=== PATIENT | male | born 1940 | race Caucasian/White ===

== ENCOUNTER 2021-08-12 22:15 | Emergency (ER) | payer MEDICARE, OTHER ==
[2021-08-12 22:26] VITALS: BP 128/61
[2021-08-13] MEDS ORDERED: cephALEXin 250 MG CAPSULE PO STA (01:23)
--- NOTE | 2021-08-13 01:26 | ED Physician Documentation ---
PD HPI UPPER EXT INJURY - Stated complaint Stated Complaint: HAND LAC - Chief complaint Chief Complaint: Laceration - History obtained from History obtained from: Patient - History of Present Illness Location: Right, Hand Type of injury: Laceration - Additonal information Additional information: Patient is a 80-year-old male presenting for evaluation of laceration to the right hand/wrist Which occurred a few hours ago. Patient was removing his hand from a crab pot and sustained a laceration from the metal. He denies concerns for foreign body. His tetanus is up-to-date. He does not take a blood thinner. Patient denies history of diabetes.Bleeding is controlled with pressure. Review of Systems Constitutional: denies: Fever Throat: denies: Sore throat Cardiac: denies: Chest pain / pressure Respiratory: denies: Dyspnea GI: denies: Abdominal Pain Skin: reports: Laceration (s) Neurologic: denies: Head injury PD PAST MEDICAL HISTORY - Past Medical History Musculoskeletal: Rheumatoid arthritis - Present Medications Home Medications: Ambulatory Orders Medication Instructions Recorded Confirmed cephALEXin [Keflex] 500 mg PO Q6H #20 cap 08/13/21 - Allergies Allergies/Adverse Reactions: Allergies Allergy/AdvReac Type Severity Reaction Status Date / Time No Known Drug Allergies Allergy Verified 08/12/21 22:28 PD ED PE NORMAL - General General: Alert and oriented X 3, No acute distress, Well developed/nourished - HEENT HEENT: Atraumatic - Neck Neck: Supple, no meningeal sign - Cardiac Cardiac: Strong equal pulses - Respiratory Respiratory: No respiratory distress - Extremities Extremities: No tenderness to palpate, Normal ROM s pain PD ED PE EXPANDED - Extremities Extremities: Motor intact, Sensory intact, Vascular intact, Other (Strong radial pulse, no bony tenderness to hand or wrist, full range of motion ) JACI UE/Hands Visual: 1 - laceration 2 - abrasion Results - Vitals Vitals: Vital Signs - 24 hr 08/12/21 22:20 Temperature 36.4 C L Heart Rate 85 Respiratory 18 Rate Blood Pressure 128/61 O2 Saturation 97 Oxygen O2 Source Room air Procedures - Laceration (location) Right hand Wound type: Irregular (Linear but jagged), Clean Neurovascular status: Sensory intact, Motor intact, Vascular intact Tendon involvement: Tendon intact Anesthesia: Lidocaine 1% with epi Wound preparation: Hibiclens, Irrigated copiously NS Skin layer closure: Steri strips, Interrupted, Sutures - enter # (8) Other: Patient tolerated well, No complications, Neurovascular intact, Dressing applied, Tetanus UTD PD MEDICAL DECISION MAKING - ED course ED course: Patient with laceration to his right hand/Wrist from a crab pot. Neurovascularly intact. No signs of tendon or vascular injury.Wound was copiously irrigated. Patient reported that the metal did poke pretty far into his hand. Offered x-ray but patient declined. 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 He does not feel any bony tenderness. Given the location of the laceration and That the item that cut him was not clean, discussed prophylactic antibiotic To prevent infectionwhich the patient is agreeable to.Patient is aware of wound care instructions, Understands concerning symptoms to return for. 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 Departure - Departure Disposition: 01 Home, Self Care Clinical Impression: Laceration of right hand Qualifiers: Encounter type: initial encounter Foreign body presence: without foreign body Qualified Code(s): S61.411A - Laceration without foreign body of right hand, initial encounter Condition: Stable Instructions: ED Laceration Hand Prescriptions: cephALEXin [Keflex] 500 mg PO Q6H #20 cap Comments: You were evaluated for a laceration to your right hand. 8 stitches were placed as well as Steri-Strips. The stitches should be removed in 5 to 7 days. You can return to the emergency department, your primary care doctor's office or a walk-in clinic to have the stitches removed. Due to the nature of the injury I have started you on an antibiotic to prevent any infection. Please continue taking this for the next 5 days. I have sent the prescription to [facility] in [place]. Please keep the wound clean and dry. If you notice any signs of infection such as redness, increased pain, swelling or abnormal drainage please return to the emergency department. Discharge Date/Time: 08/13/21 01:32
== END 2021-08-13 01:32 | disposition home or self-care (01) ==
LOC: ED 22:15
DX: S61.511A Laceration without foreign body of right wrist, initial encounter (principal); W26.8XXA Contact with other sharp object(s), not elsewhere classified, initial encounter; Y93.89 Activity, other specified
CPT/HCPCS: 12002; 99282; A9270

== ENCOUNTER 2024-10-06 03:31 | Inpatient (IN) ==
--- NOTE | 2024-10-06 03:58 | ED Physician Documentation ---
PD HPI LOWER EXT INJURY Stated complaint Stated Complaint: HIP INJ Chief complaint Chief Complaint: Ext Problem Additional information Additional information: BIBA. HPI from patient and family (at bedside). Patient has been having nausea, vomiting, diarrhea x 2 days and has been mostly staying in bed past 1-2 days. Mp got out of bed and, on way to bathroom, lost his balance and fell onto right side, causing sudden onset right hip pain when he landed on the floor. Did not hit head, denies LOC. Denies [place], neck pain, chest pain. He does not take any blood-thinning medications. Denies any other injury/pain except right hip pain. The right hip pain is exacerbated with any movement, palpation. Given 150 micrograms fentanyl en route by EMS. Meds/Allgy Home Medications Ambulatory Orders Medication Instructions Recorded Confirmed cephalexin 500 mg capsule 500 mg PO Q6H #20 caps 08/1310/06/24 Held on 10/06/24. Instructions: Per Patient colchicine 0.6 mg tablet 0.6 mg PO BID #30 tabs 07/0610/06/24 Held on 10/06/24. Instructions: Per Patient dexamethasone 2 mg tablet 2 mg PO DAILY #5 tabs 10/06/24 Held on 10/06/24. Instructions: Per Patient atorvastatin 80 mg tablet 80 mg PO QPM 10/06/24 hydrochlorothiazide 25 mg tablet 25 mg PO DAILY irbesartan 150 mg tablet 150 mg PO DAILY 10/06/24 metformin 1,000 mg tablet 1,000 mg PO BID 10/06/24 Allergies Allergies Allergy/AdvReac Type Severity Reaction Status Date / Time No Known Drug Allergies Allergy Verified 10/06/24 03:46 PFSH Active Problems All Active Problems (Updated 10/06/24 @ 05:43 by Keyur Gross MD) Closed right hip fracture (Acute) Medical History Medical History (Updated 10/06/24 @ 05:43 by Keyur Gross MD) High cholesterol Arthritis Hypertension Social History Social History Smoking Status: Never smoker Living arrangement: At home Marital Status: Living Condition: With spouse/s.o. Do you feel safe in your home environment?: Yes History of physical, verbal, emotional, or financial abuse?: No POLST Patient has POLST: No Exam Exam Vital Signs: Vital Signs x48h Temp Pulse Resp BP Pulse Ox 10/06/24 03:42 37.2 C 67 20 108/54 L 95 Constitutional normal general appearance, distress noted (appears to be in moderate painful discomfort) (moderate) and alert HENMT head/scalp atraumatic Eyes PERRL and EOMs intact bilaterally Neck/C-Spine cervical spine nontender and cervical full ROM noted Respiratory breath sounds equal bilaterally and clear to auscultation bilaterally Cardiovascular normal heart rate noted, regular rhythm noted and no murmur Extremities abnormal to palpation, tenderness noted and abnormal ROM noted right hip/thigh: no ecchymosis, lacerations, abrasions. palpable right dorsalis pedis pulse and @ 2 second capillary refill. Decreased LTS right foot but equal to (decreased) LTS left foot. right foot is externally rotated beyond 90 degrees (approximately 100 degrees) TTP right hip and proximal thigh. Neurology GCS 15 Psychiatry oriented x3 Results Vitals Vitals: Vital Signs - 24 hr 10/06/24 03:42 10/06/24 04:05 Temperature 37.2 C Temperature Source Temporal Artery Scan Pulse Rate 67 Respiratory Rate 20 Blood Pressure 108/54 L O2 Saturation 95 O2 Source Room air Pain Intensity 4 4 Oxygen O2 Source Room air Labs Labs: Laboratory Tests 10/06/24 03:40 WBC 9.6 RBC 3.47 L Hgb 12.2 L Hct 36.3 L MCV 104.6 H MCH 35.2 H MCHC 33.6 RDW 12.3 Plt Count 148 MPV 10.6 Neut # (Auto) 8.1 H Lymph # (Auto) 0.7 L [place] # (Auto) 0.8 Eos # (Auto) 0.0 Baso # (Auto) 0.0 Absolute Nucleated RBC 0.00 Nucleated RBC % 0.0 Sodium 130 L Potassium 3.8 Chloride 94 L Carbon Dioxide 26 Anion Gap 10.0 BUN 17 Creatinine 1.3 Estimated GFR (MDRD) 53 L Glucose 152 H Calcium 8.7 Rads (name of study) right hip xrays: Relevant Findings:: Prelim report reviewed and See rad report PD Medical Decision Making ED course Complexity details: reviewed results, re-evaluated patient, considered differential and d/w patient ED course: Plain-film x-ray is interpreted by radiologist as "acute, displaced intertrochanteric and subtrochanteric fracture of the right proximal femur." I discussed this case with Dr. Shaw and reviewed xray results with him. He recommends admit to [facility], hospitalist service. He also recommends either Hill traction or else, if not available, that I apply gentle in-line traction with internal rotation. Hill traction is not available and thus I applied gentle in- line traction to RLE with gradual internal rotation and was able to get the foot in neutral (zero degrees) position. I then discussed this case with [facility] telehealth who accepts patient to [facility] hospitalist service Discharge Plan Discharge Patient Disposition: 66 [facility] DC/Xfer Condition: Good Clinical Impression: Closed right hip fracture Qualifiers: Encounter type: initial encounter Qualified Code(s): S72.001A - Fracture of unspecified part of neck of right femur, initial encounter for closed fracture Interventions: ED Admission Assessment Last Done: 10/06/24 06:02
[2024-10-06] MEDS: HYDROmorphone 1 MG/ML CARPUJECT IVP STA (04:05)
[2024-10-06 04:36] LABS: HCT - HEMATOCRIT 36.3 % (42.0-52.0); HGB - HEMOGLOBIN 12.2 g/dL (14.0-18.0); MEAN PLATELET VOLUME 10.6 fL (7.4-11.4); NRBC ABSOLUTE COUNT (AUTO) 0.00 x10^3/uL; NUCLEATED RED BLOOD CELLS AUTO 0.0 /100WBC; PLT - PLATELET COUNT 148 10^3/uL (130-450); RED CELL DISTRIBUTION WIDTH 12.3 % (12.0-15.0)
[2024-10-06] MEDS: SODIUM CHLORIDE 0.9% 1,000 ML IV STA (04:45)
[2024-10-06 04:51] LABS: BUN - BLOOD UREA NITROGEN 17.0 mg/dL (6-20); CARBON DIOXIDE - CO2 26.0 mmol/L (21-32); CREATININE 1.3 mg/dL (0.6-1.3); GFR - MDRD 53.0 (>89)
--- NOTE | 2024-10-06 05:21 | HISTORY & PHYSICAL EXAMINATION ---
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 At baseline patient is able to walk within 100-200 meters without getting dyspnea or chest pain or leg pain. Since fall patient sustained right hip pain, worse with moving and weight bearing somewhat better with pain medication in ER, during work up in ER, patient is found to have close right hip fracture and ER Dr Gross d/w sidney MARVIN for operative repair consult, hospitalist team is asked to admit patient Meds/Allgy Home Medications Ambulatory Orders Medication Instructions Recorded Confirmed cephalexin 500 mg capsule 500 mg PO Q6H #20 caps 08/1310/06/24 Held on 10/06/24. Instructions: Per Patient colchicine 0.6 mg tablet 0.6 mg PO BID #30 tabs 07/0610/06/24 Held on 10/06/24. Instructions: Per Patient dexamethasone 2 mg tablet 2 mg PO DAILY #5 tabs 10/06/24 Held on 10/06/24. Instructions: Per Patient atorvastatin 80 mg tablet mg DAILY 10/06/24 hydrochlorothiazide 25 mg tablet mg DAILY 10/06/24 irbesartan 150 mg tablet mg DAILY 10/06/24 metformin 1,000 mg tablet mg BID 10/06/24 Allergies Allergies Allergy/AdvReac Type Severity Reaction Status Date / Time No Known Drug Allergies Allergy Verified 10/06/24 03:46 PFSH Active Problems All Active Problems (Updated 10/06/24 @ 05:43 by Keyur Gross MD) Closed right hip fracture (Acute) Medical History Medical History (Updated 10/06/24 @ 05:43 by Keyur Gross MD) High cholesterol Arthritis Hypertension Social History Social History Smoking Status: Never smoker Living arrangement: At home Marital Status: Living Condition: With spouse/s.o. Do you feel safe in your home environment?: Yes History of physical, verbal, emotional, or financial abuse?: No POLST Patient has POLST: No Review of Systems As a part of complete assessment, following review of systems are obtained including neurology, cardiology, pulmonary, gastrointestinal, constitutional, genitourinary, Musculoskeletal, Endocrine and all are negative except HPI Exam Exam Vital Signs: Vital Signs x48h Temp Pulse Resp BP Pulse Ox 10/06/24 03:42 37.2 C 67 20 108/54 L 95 Conducted by ER MD In person exam, and by RN at bedside, this visit was conducted via telemedicine visit Constitutional normal general appearance HENMT normocephalic Eyes no scleral icterus Chest inspection of chest normal Cardiovascular no edema Neurology no movement abnormality noted, no focal motor deficit noted and no sensory deficits noted Conclusion/Plan Problem List (1) Closed right hip fracture: Qualifiers: Encounter type: initial encounter Qualified Code(s): S72.001A - Fracture of unspecified part of neck of right femur, initial encounter for closed fracture (2) Hypertension: (3) High cholesterol: Plan -Admit to hospital - From functional stand point, no symptoms limiting function, no prior CAD - Ok to proceed with surgery if ortho is proceeding with surgery - Hypovolvemic hyponatreimia, reduce HCTZ dose - Continue gentle IVF - Hold Irbesartan preop - Continue statin - Ortho consult to follow - Full code status - Will need post op PT Lab Results 10/06/24 03:40 10/06/24 03:40
[2024-10-06] MEDS ORDERED: ONDANSETRON 4 MG/2 ML VIAL IVP PRN (06:23)
[2024-10-06] MEDS ORDERED: SODIUM CHLORIDE FLUSH 0.9% 10 ML SYRINGE IVP PRN (06:23)
[2024-10-06] MEDS: INSULIN REGULAR, HUMAN 300 UNIT/3 ML PEN SUBQ SCH (06:40)
[2024-10-06] MEDS: SODIUM CHLORIDE 0.9% 1,000 ML IV SCH (06:41)
[2024-10-06] MEDS: ACETAMINOPHEN 325 MG TABLET PO PRN (08:43)
--- NOTE | 2024-10-06 08:48 | XRAY Report ---
PROCEDURE: XR Hip w/Pelvis 2-3V RT INDICATIONS: fall, right hip pain TECHNIQUE: 3 views of the hip were acquired. COMPARISON: None. FINDINGS: Bones: Angulated and mildly displaced proximal femoral fracture extending to the intertrochanteric bone. There is no dislocation at the hip joint. Displacement from the distal aspect of the spinal trochanteric component of the fracture measures approximately 5 cm. Soft tissues: No suspicious soft tissue calcifications or masses. IMPRESSION: Comminuted displaced proximal femoral fracture involving the intertrochanteric region. The above findings are concordant with preliminary report. Reviewed by: Denita Martinez MD on 10/06/2024 8:46 AM PDT Approved by: Denita Martinez MD on 10/06/2024 8:46 AM PDT Station ID: [id number]
[2024-10-06] MEDS: HYDROmorphone 0.5 MG/0.5 ML SYRINGE IVP PRN (08:53)
--- NOTE | 2024-10-06 09:28 | PROVIDER PROGRESS NOTE ---
Subjective Prog Note Date Prog Note Date: 10/06/24 Prog Note Time: 09:26 Subjective Subjective: is at the bedside. 2 children at the bedside. They are very concerned. He is usually very shea and hearty lin. No evidence of dementia. He got sick on Sunday, October 03. Started having some abdominal discomfort and nausea. He tried to vomit and could not. Feels like something was blocking his esophagus and he is asking me for an esophagram. Diarrhea was a couple of times. Has not had anything to eat or drink since Sunday. No blood in the stool. He has not had any emesis. He was seen in the emergency room and at that time temperature was 37 2. Blood pressure 108/54. White cell count is 9.6. No chest x-ray. No urinalysis. Focus was on the hip fracture that he suffered because he fell trying to get out of bed. Currently he is spiked a temp to 38.8. Blood pressure stable at 114/47 with this. He started to get a little confused and diaphoretic. Family very alarmed. Understandably so. But he is still able to speak to me and tell me that he wanted the esophagram for the dry heaving where he felt like his drink could not get down. But no emesis. He has not had a history of heart disease. No AK. No arrhythmias. He does not take blood thinners. His discomfort does not radiate into his chest. He is not short of breath. Current Medications Current Medications Current Medications: Current Medications Generic Name Dose Route Start Last Admin Trade Name Freq PRN Reason Stop Dose Admin Acetaminophen 650 mg 10/06/24 06:23 10/06/24 08:43 Acetaminophen 325 Mg Tablet PO 650 mg Q4HR PRN Administration Pain 1 to 4, or Fever Atorvastatin Calcium 80 mg 10/06/24 09:00 Atorvastatin 40 Mg Tablet PO DAILY DUNIA Heparin Sodium (Porcine) 5,000 unit 10/06/24 21:00 Heparin 5,000 Unit/Ml Vial SUBQ BID DUNIA Hydrochlorothiazide 12.5 mg 10/06/24 09:00 Hydrochlorothiazide 25 Mg Tablet PO DAILY DUNIA Hydromorphone HCl 0.5 mg 10/06/24 06:23 10/06/24 08:53 Hydromorphone 0.5 Mg/0.5 Ml Syringe IVP 0.5 mg Q2H PRN Administration Pain 8 to 10 Sodium Chloride 1,000 mls @ 100 mls/hr 10/06/24 06:23 10/06/24 06:42 Normal Saline 0.9% IV 100 mls/hr .Q10H [facility] Infusion Ciprofloxacin 400 mg in 200 mls @ 200 mls/hr 10/06/24 10:00 Cipro 400 Mg/200 Ml IV Q12H [facility] Metronidazole 500 mg in 100 mls @ 100 mls/hr 10/06/24 10:00 Flagyl 500 Mg/100 Ml IV Q8H [facility] Insulin Human Regular 1 - 5 unit 10/06/24 06:23 10/06/24 06:40 Insulin Regular, Human 300 Unit/3 Ml Pen SUBQ Not Given Q6HR [facility] Protocol Ondansetron HCl 4 mg 10/06/24 06:23 Ondansetron 4 Mg/2 Ml Vial IVP Q6HR PRN Nausea / Vomiting Oxycodone HCl 5 mg 10/06/24 06:23 Oxycodone 5 Mg Tablet PO Q4HR PRN Pain 5 to 7 Sodium Chloride 10 ml 10/06/24 06:23 Sodium Chloride Flush 0.9% 10 Ml Syringe IVP PRN PRN NEEDED PER PROVIDER ORDERS Sodium Chloride 10 ml 10/06/24 09:00 Sodium Chloride Flush 0.9% 10 Ml Syringe IVP 0100,0900,1700 [facility] Objective Vital Signs/Intake & Output Reviewed Vital Signs: Yes Vital Signs: Vital Signs x48h Temp Pulse Pulse Resp BP BP Pulse Ox 10/06/24 08:22 38.8 C H 74 21 114/47 L 94 10/06/24 06:02 76 18 126/51 L 96 10/06/24 03:42 37.2 C 67 20 108/54 L 95 O2 Flow Rate 10/06/24 08:22 10/06/24 06:02 3 10/06/24 03:42 Intake & Output: Intake & Output 10/03/24 10/04/24 10/05/24 10/06/24 23:59 23:59 23:59 23:59 Intake Total 295 / 295 Balance 295 / 295 Weight (kg) 96 kg Objective General Appearance: positive Moderate distress (Grimacing. Starts to pant with pain and then as the pain lessens he is breathing goes to normal. The pain is in his hip.) and Other (Able to answer some questions. But very difficult for him to focus and converse.Diaphoretic.) Eyes Bilateral: positive PERRL and EOMI ENT: positive Dry mucous membranes Neck: positive No JVD; negative Stiff neck or Carotid bruit Respiratory: positive Chest non-tender, No respiratory distress (But will get temporary tachypneic with pain from the hip and he catches his breath) and Breath sounds nml Cardiovascular: positive Regular rate & rhythm and No murmur Abdomen: positive Non-tender, No organomegaly and Nml bowel sounds Skin: positive Warm and Diaphoresis Extremities: positive Nml appearance and Other (Tenderness over the right hip. I cannot move that leg. But other leg is without cyanosis or edema) Neurologic/Psychiatric: positive Oriented x3, CN's nml (2-12), Motor nml and Other (Working hard at staying focused and able to converse lucidly. Is following commands.) Lab Results 10/06/24 03:40 10/06/24 03:40 Other Labs: Lab Results x24hrs 10/06/24 10/06/24 Range/Units 06:31 03:40 WBC 9.6 (4.8-10.8) x10^3/uL RBC 3.47 L (4.70-6.10) 10^6/uL Hgb 12.2 L (14.0-18.0) g/dL Hct 36.3 L (42.0-52.0) % MCV 104.6 H (80.0-94.0) fL MCH 35.2 H (27.0-31.0) pg MCHC 33.6 (32.0-36.0) g/dL RDW 12.3 (12.0-15.0) % Plt Count 148 (130-450) 10^3/uL MPV 10.6 (7.4-11.4) fL Neut # (Auto) 8.1 H (1.5-6.6) 10^3/uL Lymph # (Auto) 0.7 L (1.5-3.5) 10^3/uL [place] # (Auto) 0.8 (0.0-1.0) 10^3/uL Eos # (Auto) 0.0 (0.0-0.7) 10^3/uL Baso # (Auto) 0.0 (0.0-0.1) 10^3/uL Absolute Nucleated RBC 0.00 x10^3/uL Nucleated RBC % 0.0 /100WBC Sodium 130 L (135-145) mmol/L Potassium 3.8 (3.5-4.5) mmol/L Chloride 94 L (101-111) mmol/L Carbon Dioxide 26 (21-32) mmol/L Anion Gap 10.0 (6-13) BUN 17 (6-20) mg/dL Creatinine 1.3 (0.6-1.3) mg/dL Estimated GFR (MDRD) 53 L (>89) Glucose 152 H (74-104) mg/dL POC Whole Bld Glucose 137 (70-100) mg/dL Calcium 8.7 (8.5-10.3) mg/dL Assessment/Plan Problem List (1) Fever: Impression: On review of systems the only hint I have 2 possible organ involvement is nausea, abdominal discomfort. Diarrhea. Abdominal exam is benign with normal bowel sounds. But he is having a fever. I do also think about fat pulmonary embolus. That is usually associated with hypoxia and fever and elevated white cell count. He has the fever but not hypoxia or white cell count. I am going to be ordering a stat chest x-ray, blood cultures, urinalysis, EKG and troponin. As abdomen is possible source or colitis is some type as possible source I am going to start Cipro and Flagyl. If he ends up having a UTI Cipro will cover it. The only thing I am not covering is going to be community- acquired pneumonia but that usually does not start as a GI positive review of systems.He is on normal saline 100 cc an hour. I will give him a 500 cc bolus since he has not had anything to eat or drink since Sunday and today is Sunday. He has antiemetics written for. And Dilaudid written for. The next step would be to treat the pain from the hip fracture. I told the family I we will contact orthopedics and try and find out what time his surgery would be. DVT prophylaxis is with heparin. I will give the first injection today. Qualifiers: Fever type: unspecified Qualified Code(s): R50.9 - Fever, unspecified (2) Closed right hip fracture: Impression: Fall due to illness and sudden deconditioning. Possibly to go to the operating room today. Qualifiers: Encounter type: initial encounter Qualified Code(s): S72.001A - Fracture of unspecified part of neck of right femur, initial encounter for closed fracture (3) Hypertension: Impression: At home his medication is irbesartan and hydrochlorothiazide. Right now his blood pressure is normal without those medications. I am going to hold off on giving those. When his blood pressure rebounds I will resume them. Qualifiers: Hypertension type: primary hypertension Qualified Code(s): I10 - Essential (primary) hypertension (4) High cholesterol: Impression: Telehealth resumed his statin.
[2024-10-06] MEDS: SODIUM CHLORIDE 0.9% 500 ML IV ONE (09:44)
--- NOTE | 2024-10-06 09:51 | XRAY Report ---
PROCEDURE: XR Chest 1V INDICATIONS: fever preop TECHNIQUE: One view of the chest was acquired. COMPARISON: Chest x-ray, CT chest 07/06/2024 FINDINGS: Surgical changes and devices: None. Lungs and pleura: Blunting of the left costophrenic angle with slight hazy opacity in the left base similar versus minimally more prominent when compared to prior exam. Mediastinum: Mediastinal contours appear normal. Heart size is enlarged. Bones and chest wall: No suspicious bony lesions. Overlying soft tissues appear unremarkable. IMPRESSION: Hazy left basilar opacity likely reflective of minimal/mild effusion. Underlying areas of pneumonia/atelectasis can't be excluded. Reviewed by: Denita Martinez MD on 10/06/2024 9:50 AM PDT Approved by: Denita Martinez MD on 10/06/2024 9:50 AM PDT Station ID: [id number]
--- NOTE | 2024-10-06 10:14 | PHARMACY PROGRESS NOTE ---
Best Possible Medication History Admit Date and Time: 10/06/24 [id number] Home Medications Medication Instructions Recorded Confirmed Type atorvastatin 80 mg tablet 80 mg PO QPM 10/06/24 History hydrochlorothiazide 25 mg tablet 25 mg PO DAILY 10/06/24 History irbesartan 150 mg tablet 150 mg PO DAILY 10/06/2403/01 History metformin 1,000 mg tablet 1,000 mg PO BID 10/06/2403/01 History Processed by: Pharmacy Medications reviewed in ED?: No Medication History completed: Yes Patient Interview: Pt interview ONLY source Secondary Source(s): Written medication list, Other family member, Pharmacy records and Insurance records [facility] Statement: As the person ultimately responsible for medication therapy, providers are able to order a medication from an existing home medication list in [facility] via the "Reconcile Routine" prior to Confirmation of that medication by technical support assistant. Such practice is discouraged except when the physician, in their clinical judgment, deems that a medical need exists for a medication without regard to previous use.
[2024-10-06] MEDS: ATORVASTATIN 40 MG TABLET PO SCH (10:19)
[2024-10-06] MEDS: SODIUM CHLORIDE FLUSH 0.9% 10 ML SYRINGE IVP SCH (10:19)
[2024-10-06] MEDS: HEPARIN 5,000 UNIT/ML VIAL SUBQ SCH (11:20)
[2024-10-06] MEDS: CIPROFLOXACIN 400 MG/200 ML 400 MG/200 ML BAG IV SCH (11:21)
[2024-10-06 12:04] LABS: ESTIMATED AVERAGE GLUCOSE 131 mg/dL (70-100); HEMOGLOBIN A1c% 6.2 % (4.27-6.07)
[2024-10-06] MEDS: oxyCODONE 5 MG TABLET PO PRN (13:32)
[2024-10-06 15:05] LABS: GLUCOSE, URINE (UA) NEGATIVE (NEGATIVE); KETONES,URINE (UA) 40 mg/dL (NEGATIVE); OCCULT BLOOD,URINE SMALL (NEGATIVE); SQUAMOUS EPITHELIAL CELL,UR FEW Squamous (<= Few)
--- NOTE | 2024-10-06 16:22 | CONSULTATION NOTE ---
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 Patient experienced diarrhea, leading to dehydration, which may have contributed to his fall. Denies antecedent or post fall syncopal symptoms. No LOC. Patient sustained a right femur fracture. Patient lives with his Exam: Pt still febrile. Patient appears mildly unwell and is visibly shaking or shivering, which family reports is not normal for him After receiving dilaudid, his shaking stopped and he became calm, suggesting he is in significant pain without narcotics. Patient has had a Diana catheter inserted Thigh examined with mild swelling. Right lower extremity is grossly aligned. There are no specific abnormalities noted other than the fracture. Patient able to move toes. Pain with logroll. Results: Femur xray shows a right intertrochanteric-subtrochanteric fracture. Assessment and Plan: Femur Fracture Assessment: Patient has sustained a femur fracture due to a fall. Patient is experiencing pain and intermittent shivering, which may be related to pain or fever. Plan: 1. Surgery scheduled for 8:30am tomorrow to repair the femur fracture 2. Surgical plan includes insertion of a fran, with possible additional fixation methods such as cerclage, small plate, or screws 3. If surgery is delayed due to patient instability, Dr. Estevez is expected to take over the case 4. DVT prophylaxis with sequential compression boots and pharmacoprophylaxis with lovenox then aspirin. 5. Continue monitoring for fever and overall stability pre-operatively Fever: Discussed with Dr. Baron. Will add rocephin and r/o fat embolus/pneumonia. Gastrointestinal Issues Assessment: Patient has experienced diarrhea leading to dehydration. This is being treated with cipro and metronidazole antibiotics to cover various GI pathogens, including C. diff. Plan: 1. Continue antibiotic treatment with Flagyl (Metronidazole) and Ciprofloxacin as prescribed by Dr. Baron 2. Monitor hydration status and continue IV fluids as needed 3. Observe for improvement in diarrhea symptoms Pain Management Assessment: Patient is experiencing pain related to the femur fracture. Plan: 1. Continue pain management as needed 2. Monitor pain levels and adjust medication as required General Care 1. Continue monitoring vital signs, particularly for development of fever 2. Maintain Diana catheter as needed 3. Ensure patient is kept warm to manage shivering 4. Reassess patient's condition regularly to ensure stability for upcoming surgery PFSH Active Problems All Active Problems (Updated 10/06/24 @ 11:01 by Lynn Baron MD) Fever (Acute) Closed right hip fracture (Acute) Medical History Medical History (Updated 10/06/24 @ 11:01 by Lynn Baron MD) High cholesterol Arthritis Hypertension Social History Social History Smoking Status: Never smoker Second hand tobacco smoke exposure: Yes Do you dip or chew tobacco?: No Do you vape?: No Living arrangement: At home Marital Status: Living Condition: With spouse/s.o. Level: Dependent Home Mobility Equipment: Cane Do you feel safe in your home environment?: No History of physical, verbal, emotional, or financial abuse?: No Substance Use: denies use POLST Patient has POLST: No Meds/Allgy Home Medications Ambulatory Orders Medication Instructions Recorded Confirmed atorvastatin 80 mg tablet 80 mg PO QPM 10/06/24 hydrochlorothiazide 25 mg tablet 25 mg PO DAILY 10/06/24 irbesartan 150 mg tablet 150 mg PO DAILY 10/06/2403/01 metformin 1,000 mg tablet 1,000 mg PO BID 10/06/2403/01 Allergies Allergies Allergy/AdvReac Type Severity Reaction Status Date / Time No Known Drug Allergies Allergy Verified 10/06/24 03:46 Results Lab Results 10/06/24 03:40 10/06/24 03:40 Other Lab Results: Lab Results x24hrs 10/06/24 10/06/24 10/06/24 Range/Units 14:05 14:00 12:11 WBC (4.8-10.8) x10^3/uL RBC (4.70-6.10) 10^6/uL Hgb (14.0-18.0) g/dL Hct (42.0-52.0) % MCV (80.0-94.0) fL MCH (27.0-31.0) pg MCHC (32.0-36.0) g/dL RDW (12.0-15.0) % Plt Count (130-450) 10^3/uL MPV (7.4-11.4) fL Neut # (Auto) (1.5-6.6) 10^3/uL Lymph # (Auto) (1.5-3.5) 10^3/uL Crisp # (Auto) (0.0-1.0) 10^3/uL Eos # (Auto) (0.0-0.7) 10^3/uL Baso # (Auto) (0.0-0.1) 10^3/uL Absolute Nucleated RBC x10^3/uL Nucleated RBC % /100WBC Sodium (135-145) mmol/L Potassium (3.5-4.5) mmol/L Chloride (101-111) mmol/L Carbon Dioxide (21-32) mmol/L Anion Gap (6-13) BUN (6-20) mg/dL Creatinine (0.6-1.3) mg/dL Estimated GFR (MDRD) (>89) Glucose (74-104) mg/dL POC Whole Bld Glucose 177 (70-100) mg/dL Estimat Average Glucose (70-100) mg/dL Hemoglobin A1c % (4.27-6.07) % Lactic Acid (0.5-2.2) mmol/L Calcium (8.5-10.3) mg/dL Troponin I High Sens 35.6 H* (2.3-19.7) ng/L Urine Color DARK YELLOW Urine Clarity CLEAR (CLEAR) Urine pH 6.0 (5.0-7.5) PH Ur Specific [place] 1.030 (1.002-1.030) Urine Protein 300 H (NEGATIVE) mg/dL Urine Glucose (UA) NEGATIVE (NEGATIVE) mg/dL Urine Ketones 40 H (NEGATIVE) mg/dL Urine Occult Blood SMALL (NEGATIVE) Urine Nitrite NEGATIVE (NEGATIVE) Urine Bilirubin NEGATIVE (NEGATIVE) Urine Urobilinogen 0.2 (NORMAL) (NORMAL) E.U./dL Ur Leukocyte Esterase NEGATIVE (NEGATIVE) Urine RBC 6-10 H (0-5) /HPF Urine WBC 0-3 (0-3) /HPF Ur Squamous Epith Cells FEW Squamous (<= Few) Urine Bacteria Few (None Seen) /HPF Urine Culture Comments NOT INDICATED 10/06/24 10/06/24 10/06/24 Range/Units 09:42 09:39 06:31 WBC (4.8-10.8) x10^3/uL RBC (4.70-6.10) 10^6/uL Hgb (14.0-18.0) g/dL Hct (42.0-52.0) % MCV (80.0-94.0) fL MCH (27.0-31.0) pg MCHC (32.0-36.0) g/dL RDW (12.0-15.0) % Plt Count (130-450) 10^3/uL MPV (7.4-11.4) fL Neut # (Auto) (1.5-6.6) 10^3/uL Lymph # (Auto) (1.5-3.5) 10^3/uL Crisp # (Auto) (0.0-1.0) 10^3/uL Eos # (Auto) (0.0-0.7) 10^3/uL Baso # (Auto) (0.0-0.1) 10^3/uL Absolute Nucleated RBC x10^3/uL Nucleated RBC % /100WBC Sodium (135-145) mmol/L Potassium (3.5-4.5) mmol/L Chloride (101-111) mmol/L Carbon Dioxide (21-32) mmol/L Anion Gap (6-13) BUN (6-20) mg/dL Creatinine (0.6-1.3) mg/dL Estimated GFR (MDRD) (>89) Glucose (74-104) mg/dL POC Whole Bld Glucose 137 (70-100) mg/dL Estimat Average Glucose (70-100) mg/dL Hemoglobin A1c % (4.27-6.07) % Lactic Acid 0.9 (0.5-2.2) mmol/L Calcium (8.5-10.3) mg/dL Troponin I High Sens 42.9 H* (2.3-19.7) ng/L Urine Color Urine Clarity (CLEAR) Urine pH (5.0-7.5) PH Ur Specific [place] (1.002-1.030) Urine Protein (NEGATIVE) mg/dL Urine Glucose (UA) (NEGATIVE) mg/dL Urine Ketones (NEGATIVE) mg/dL Urine Occult Blood (NEGATIVE) Urine Nitrite (NEGATIVE) Urine Bilirubin (NEGATIVE) Urine Urobilinogen (NORMAL) E.U./dL Ur Leukocyte Esterase (NEGATIVE) Urine RBC (0-5) /HPF Urine WBC (0-3) /HPF Ur Squamous Epith Cells (<= Few) Urine Bacteria (None Seen) /HPF Urine Culture Comments 10/06/24 Range/Units 03:40 WBC 9.6 (4.8-10.8) x10^3/uL RBC 3.47 L (4.70-6.10) 10^6/uL Hgb 12.2 L (14.0-18.0) g/dL Hct 36.3 L (42.0-52.0) % MCV 104.6 H (80.0-94.0) fL MCH 35.2 H (27.0-31.0) pg MCHC 33.6 (32.0-36.0) g/dL RDW 12.3 (12.0-15.0) % Plt Count 148 (130-450) 10^3/uL MPV 10.6 (7.4-11.4) fL Neut # (Auto) 8.1 H (1.5-6.6) 10^3/uL Lymph # (Auto) 0.7 L (1.5-3.5) 10^3/uL Crisp # (Auto) 0.8 (0.0-1.0) 10^3/uL Eos # (Auto) 0.0 (0.0-0.7) 10^3/uL Baso # (Auto) 0.0 (0.0-0.1) 10^3/uL Absolute Nucleated RBC 0.00 x10^3/uL Nucleated RBC % 0.0 /100WBC Sodium 130 L (135-145) mmol/L Potassium 3.8 (3.5-4.5) mmol/L Chloride 94 L (101-111) mmol/L Carbon Dioxide 26 (21-32) mmol/L Anion Gap 10.0 (6-13) BUN 17 (6-20) mg/dL Creatinine 1.3 (0.6-1.3) mg/dL Estimated GFR (MDRD) 53 L (>89) Glucose 152 H (74-104) mg/dL POC Whole Bld Glucose (70-100) mg/dL Estimat Average Glucose 131 H (70-100) mg/dL Hemoglobin A1c % 6.2 H (4.27-6.07) % Lactic Acid (0.5-2.2) mmol/L Calcium 8.7 (8.5-10.3) mg/dL Troponin I High Sens (2.3-19.7) ng/L Urine Color Urine Clarity (CLEAR) Urine pH (5.0-7.5) PH Ur Specific [place] (1.002-1.030) Urine Protein (NEGATIVE) mg/dL Urine Glucose (UA) (NEGATIVE) mg/dL Urine Ketones (NEGATIVE) mg/dL Urine Occult Blood (NEGATIVE) Urine Nitrite (NEGATIVE) Urine Bilirubin (NEGATIVE) Urine Urobilinogen (NORMAL) E.U./dL Ur Leukocyte Esterase (NEGATIVE) Urine RBC (0-5) /HPF Urine WBC (0-3) /HPF Ur Squamous Epith Cells (<= Few) Urine Bacteria (None Seen) /HPF Urine Culture Comments Diagnostic Imaging Results Diagnostic Imaging Results: positive Read independently Review of Systems As a part of complete assessment, following review of systems are obtained including neurology, cardiology, pulmonary, gastrointestinal, constitutional, genitourinary, Musculoskeletal, Endocrine and all are negative except HPI Exam Exam Vital Signs: Vital Signs x48h Temp Pulse Resp BP Pulse Ox 10/06/24 13:00 37.1 C 77 24 106/51 L 95 10/06/24 10:19 37.1 C 10/06/24 08:22 38.8 C H 74 21 114/47 L 94 Conducted by ER MD In person exam, and by RN at bedside, this visit was conducted via telemedicine visit Constitutional normal general appearance, distress noted (appears to be in moderate painful discomfort) (moderate) and alert [facility] normocephalic and head/scalp atraumatic Eyes PERRL, EOMs intact bilaterally and no scleral icterus Neck/C-Spine cervical spine nontender and cervical full ROM noted Chest inspection of chest normal Respiratory breath sounds equal bilaterally and clear to auscultation bilaterally Cardiovascular normal heart rate noted, regular rhythm noted, no murmur and no edema Extremities abnormal to palpation, tenderness noted and abnormal ROM noted right hip/thigh: no ecchymosis, lacerations, abrasions. palpable right dorsalis pedis pulse and @ 2 second capillary refill. Decreased LTS right foot but equal to (decreased) LTS left foot. right foot is externally rotated beyond 90 degrees (approximately 100 degrees) TTP right hip and proximal thigh. Neurology no movement abnormality noted, no focal motor deficit noted, no sensory deficits noted and GCS 15 Psychiatry oriented x3 Conclusion/Plan Problem List (1) Fever: Qualifiers: Fever type: unspecified Qualified Code(s): R50.9 - Fever, unspecified (2) Closed right hip fracture: Qualifiers: Encounter type: initial encounter Qualified Code(s): S72.001A - Fracture of unspecified part of neck of right femur, initial encounter for closed fracture (3) Hypertension: Qualifiers: Hypertension type: primary hypertension Qualified Code(s): I10 - Essential (primary) hypertension (4) High cholesterol: Lab Results 10/06/24 03:40 10/06/24 03:40 Diagnostic Imaging Results Diagnostic Imaging Results: positive Read independently Diagnostic Imaging Results Comments: displaced long oblique intertrochanteric/subtrochanteric fracture
[2024-10-06] MEDS: cefTRIAXone 1 GM VIAL IVP SCH (18:12)
--- NOTE | 2024-10-06 20:13 | CT Report ---
PROCEDURE: CT Angio Chest INDICATIONS: fever, femur fx, hypoxia CONTRAST: omni 300, 80ml TECHNIQUE: After the administration of intravenous contrast, 2 mm axial images were acquired from the pulmonary apices to the posterior costophrenic angles during the arterial phase. In addition, 1 mm lung kernel and 5 mm soft tissue kernel reconstructions were performed. 3-dimensional coronal oblique maximum intensity projection (MIP) reformats, 8 mm axial MIP, and 5 mm coronal and sagittal MPR reformats were then performed through the thorax. For radiation dose reduction, the following was used: automated exposure control, adjustment of mA and/or kV according to patient size. COMPARISON: 02/06/2024. FINDINGS: Image quality: Respiratory motion artifact. Large vessels: No filling defects within the opacified pulmonary arteries, accounting for motion and contrast timing. Evaluation of the bilateral lower lobe pulmonary arteries is significantly limited due to respiratory motion artifact. No evidence of acute aortic syndrome or aortic aneurysm. Lungs and pleura: Left upper lobe consolidation. Trace bilateral pleural effusions with adjacent atelectasis versus consolidation, more pronounced on the left. Mediastinum: Heart size is enlarged. No pericardial effusion. No large vessel abnormality. Mildly enlarged mediastinal lymph nodes. Chest wall and lower neck: Thyroid is unremarkable. No axillary or supraclavicular adenopathy by size. Bones: No aggressive osseous abnormality. Upper Abdomen: Unremarkable. IMPRESSION: 1.No central pulmonary embolus. Evaluation of the lower lobe pulmonary arteries is significantly limited due to respiratory motion artifact. 2.Consolidation in the left upper lobe consistent with pneumonia. Trace bilateral pleural effusions with adjacent atelectasis versus consolidation, or pronounced on the left. 3.Mildly enlarged mediastinal lymph nodes which are likely reactive given infection. 4.Cardiomegaly and severe coronary artery calcifications. Reviewed by: Roni Jean MD on 10/06/2024 8:12 PM PDT Approved by: Roni Jean MD on 10/06/2024 8:12 PM PDT Station ID: [id number]
[2024-10-06] MEDS ORDERED: HEPARIN 5,000 UNIT/ML VIAL SUBQ SCH (21:00)
[2024-10-07 04:51] LABS: HCT - HEMATOCRIT 27.8 % (42.0-52.0); HGB - HEMOGLOBIN 9.3 g/dL (14.0-18.0); MEAN PLATELET VOLUME 10.5 fL (7.4-11.4); NRBC ABSOLUTE COUNT (AUTO) 0.00 x10^3/uL; NUCLEATED RED BLOOD CELLS AUTO 0.0 /100WBC; PLT - PLATELET COUNT 126 10^3/uL (130-450); RED CELL DISTRIBUTION WIDTH 12.5 % (12.0-15.0)
[2024-10-07 05:07] LABS: BUN - BLOOD UREA NITROGEN 20.0 mg/dL (6-20); CARBON DIOXIDE - CO2 27.0 mmol/L (21-32); CREATININE 1.3 mg/dL (0.6-1.3); GFR - MDRD 53.0 (>89)
[2024-10-07] MEDS ORDERED: ROPIVACAINE 0.2% PF 10 ML VIAL ONE (08:37)
[2024-10-07] MEDS ORDERED: LIDOCAINE 1%-EPI 1:100000 20 ML MDV ONE (08:37)
[2024-10-07] MEDS ORDERED: BACITRACIN ZINC OINT 1 PACKET TOP ONE (08:37)
[2024-10-07] MEDS ORDERED: KETOROLAC 30 MG/ML VIAL ONE (08:45)
[2024-10-07] MEDS ORDERED: cefTRIAXone 1 GM VIAL IVP SCH (09:00)
[2024-10-07] MEDS ORDERED: MIDAZOLAM 2 MG/2 ML VIAL ONE (09:13)
[2024-10-07] MEDS ORDERED: fentaNYL 100 MCG/2 ML VIAL ONE (09:13)
[2024-10-07] MEDS ORDERED: PROPOFOL 200 MG/20 ML VIAL IVP ONE (09:14)
[2024-10-07] MEDS ORDERED: ONDANSETRON 4 MG/2 ML VIAL ONE (09:19)
[2024-10-07] MEDS ORDERED: PROPOFOL 500 MG/50 ML 500 MG/50 ML VIAL ONE (09:40)
[2024-10-07] MEDS ORDERED: TRANEXAMIC ACID 1,000 MG/10 ML VIAL ONE (10:26)
[2024-10-07] MEDS ORDERED: PHENYLEPHRINE HCL 0.5 MG/5 ML AMPULE ONE (10:26)
--- NOTE | 2024-10-07 10:45 | ANESTHESIA PROCEDURE NOTE ---
Pre-Anesthesia VS, & Labs Diagnosis Surgical Diagnosis:: R femur fracture, R hip fracture Procedure Procedure: R IM nail vs cerclage vs ORIF Vitals Vital Signs: Temp Pulse Resp BP Pulse Ox O2 Flow Rate 37.6 C 97 27 H 118/52 L 93 4 10/07/24 08:07 10/07/24 08:07 10/07/24 08:07 10/07/24 08:07 10/07/24 08:07 10/07/24 08:10 NPO NPO: >8 hours Lab Results Current Lab Results: Laboratory Tests 10/07/24 09:40: Blood Type B POSITIVE, Antibody Screen NEGATIVE, Crossmatch IS Only See Detail 10/07/24 07:48: APTT 25.9 10/07/24 06:03: POC Whole Bld Glucose 149 10/07/24 04:15: WBC 6.0, RBC 2.63 L, Hgb 9.3 L, Hct 27.8 L, MCV 105.7 H, MCH 35.4 H, MCHC 33.5, RDW 12.5, Plt Count 126 L, MPV 10.5, Neut # (Auto) 4.7, Lymph # (Auto) 0.7 L, [place] # (Auto) 0.5, Eos # (Auto) 0.0, Baso # (Auto) 0.0, Absolute Nucleated RBC 0.00, Nucleated RBC % 0.0, Sodium 130 L, Potassium 4.0, Chloride 98 L, Carbon Dioxide 27, Anion Gap 5.0 L, BUN 20, Creatinine 1.3, Estimated GFR (MDRD) 53 L, Glucose 142 H, Calcium 7.4 L 10/06/24 23:57: POC Whole Bld Glucose 164 10/06/24 18:09: POC Whole Bld Glucose 173 10/06/24 14:00: Troponin I High Sens 35.6 H* 10/06/24 12:11: POC Whole Bld Glucose 177 10/06/24 09:42: Lactic Acid 0.9 10/06/24 09:39: Troponin I High Sens 42.9 H* 10/06/24 06:31: POC Whole Bld Glucose 137 10/06/24 03:40: WBC 9.6, RBC 3.47 L, Hgb 12.2 L, Hct 36.3 L, MCV 104.6 H, MCH 35.2 H, MCHC 33.6, RDW 12.3, Plt Count 148, MPV 10.6, Neut # (Auto) 8.1 H, Lymph # (Auto) 0.7 L, [place] # (Auto) 0.8, Eos # (Auto) 0.0, Baso # (Auto) 0.0, Absolute Nucleated RBC 0.00, Nucleated RBC % 0.0, Sodium 130 L, Potassium 3.8, Chloride 94 L, Carbon Dioxide 26, Anion Gap 10.0, BUN 17, Creatinine 1.3, Estimated GFR (MDRD) 53 L, Glucose 152 H, Estimat Average Glucose 131 H, Hemoglobin A1c % 6.2 H, Calcium 8.7 10/07/24 04:15 10/07/24 04:15 Meds/Allgy Home Medications Ambulatory Orders Medication Instructions Recorded Confirmed atorvastatin 80 mg tablet 80 mg PO QPM 10/06/24 hydrochlorothiazide 25 mg tablet 25 mg PO DAILY 10/06/24 irbesartan 150 mg tablet 150 mg PO DAILY 10/06/2403/01 metformin 1,000 mg tablet 1,000 mg PO BID 10/06/2403/01 Allergies Allergies Allergy/AdvReac Type Severity Reaction Status Date / Time No Known Drug Allergies Allergy Verified 10/06/24 03:46 PFSH Active Problems All Active Problems (Updated 10/07/24 @ 11:11 by Sarahy Lion CRNA) Anemia (Acute) Pneumonia (Acute) Ankylosing spondylitis (Acute) Psoriatic arthritis (Acute) Fever (Acute) Closed right hip fracture (Acute) Medical History Medical History (Updated 10/07/24 @ 11:11 by Sarahy Lion CRNA) Type 2 diabetes mellitus High cholesterol Arthritis Hypertension Social History Social History Smoking Status: Never smoker Second hand tobacco smoke exposure: Yes Do you dip or chew tobacco?: No Do you vape?: No Living arrangement: At home Marital Status: Living Condition: With spouse/s.o. Level: Dependent Home Mobility Equipment: Cane Do you feel safe in your home environment?: No History of physical, verbal, emotional, or financial abuse?: No Substance Use: denies use POLST Patient has POLST: No Anesthesia Exam (Expanded) Exam General: Alert, Oriented x3 and Cooperative Dental: WNL Mouth Openin Fingerbreadth Neck Mobility: Limited Mallampati classification: II Thyromental Distance: 4-6 cm Respiratory: Decreased breath sounds and Accessory muscle use Cardiovascular: Other (sinus arrythmia) Exam Exam Vital Signs: Vital Signs x48h Temp Pulse Resp BP Pulse Ox O2 Flow Rate 10/07/24 08:10 4 10/07/24 08:07 37.6 C 97 27 H 118/52 L 93 4 10/07/24 05:30 24 94 4 10/07/24 05:00 97 35 H 102/54 L 94 4 10/07/24 04:23 36.8 C Plan Problem List (1) Fever: Qualifiers: Fever type: unspecified Qualified Code(s): R50.9 - Fever, unspecified (2) Closed right hip fracture: Qualifiers: Encounter type: initial encounter Qualified Code(s): S72.001A - Fracture of unspecified part of neck of right femur, initial encounter for closed fracture (3) Hypertension: Qualifiers: Hypertension type: primary hypertension Qualified Code(s): I10 - Essential (primary) hypertension (4) High cholesterol: (5) Arthritis: (6) Pneumonia: (7) Type 2 diabetes mellitus: (8) Ankylosing spondylitis: (9) Psoriatic arthritis: (10) Anemia: Plan -Admit to hospital - From functional stand point, no symptoms limiting function, no prior CAD - Ok to proceed with surgery if ortho is proceeding with surgery - Hypovolvemic hyponatreimia, reduce HCTZ dose - Continue gentle IVF - Hold Irbesartan preop - Continue statin - Ortho consult to follow - Full code status - Will need post op PT Plan Anesthesia Type: Spinal Consent for Procedure(s) Verified and Reviewed: Yes Code Status: Attempt Resuscitation ASA Classification ASA classification: 3-Severe systemic disease Is this case an emergency?: No
[2024-10-07] MEDS ORDERED: PHENYLEPHRINE 10 MG/ML VIAL ONE (10:47)
[2024-10-07] MEDS ORDERED: HYDROmorphone 0.5 MG/0.5 ML SYRINGE IVP PRN (11:17)
[2024-10-07] MEDS ORDERED: ATROPINE ABBOJECT 1 MG/10 ML SYRINGE IVP PRN (11:17)
[2024-10-07] MEDS ORDERED: ePHEDrine 50 MG/ML VIAL IVP PRN (11:17)
[2024-10-07] MEDS ORDERED: ONDANSETRON 4 MG/2 ML VIAL IVP PRN (11:17)
[2024-10-07] MEDS ORDERED: NALOXONE 0.4 MG/ML VIAL IVP PRN (11:17)
[2024-10-07] MEDS ORDERED: METOCLOPRAMIDE 10 MG/2 ML VIAL IVP PRN (11:17)
[2024-10-07] MEDS ORDERED: MORPHINE 2 MG/ML CARPUJECT IVP PRN (11:17)
[2024-10-07] MEDS ORDERED: fentaNYL 100 MCG/2 ML VIAL IVP PRN (11:17)
[2024-10-07] MEDS ORDERED: VANCOMYCIN 1 GM VIAL ONE (12:26)
--- NOTE | 2024-10-07 13:08 | ANESTHESIA POST OP EVALUATION ---
Anesthesia Post Eval Post Anesthesia Eval Vitals: Last Vital Signs Temp 37.6 C 10/07/24 08:07 Pulse 97 10/07/24 08:07 Resp 27 H 10/07/24 08:07 BP 118/52 L 10/07/24 08:07 Pulse Ox 93 10/07/24 08:07 O2 Flow Rate 4 10/07/24 08:10 CV Function Including HR & BP: Stable Pain Control: Satisfactory Nausea & Vomiting: Negative Mental Status: Baseline Respiratory Status: Airway Patent Hydration Status: Satisfactory Anesthesia Complications: None
[2024-10-07] MEDS: LACTATED RINGERS 1,000 ML IV SCH (13:28)
[2024-10-07] MEDS ORDERED: SODIUM CHLORIDE FLUSH 0.9% 10 ML SYRINGE IVP PRN (13:48)
--- NOTE | 2024-10-07 14:29 | OPERATIVE REPORT ---
Operative Report General Admit Date: 10/06/24 Procedure Data: Operation Date: 10/07/24 08:30 Proposed Procedures p Hip Nailing(Right) - Víctor Shaw MD Actual Procedures p Hip Nailing(Right) - Víctor Shaw MD Pre-Op Diagnosis: displaced femoral intertroch/subtroch fracture Anesthesia Type Spinal Case Staff Anesthesia Provider: Sarahy Lion Rep: Avtar Mack ([employer]). Case Times Into Recovery: 10/07/24 12:54 Procedure Start: 10/07/24 11:03 Procedure End: 10/07/24 12:45 Time out: 10/07/24 11:01 Implants TRIGEN LAG SCRW 105/100MM TRIGEN L-P SCREW 5MM X45MM Pre-Op Diagnosis: right hip intertrochanteric-subtrochanteric fracture Post Op Diagnosis: right hip intertrochanteric - femoral shaft fracture Procedure Note Estimated Blood Loss (ml): 50 Indications: fracture of femur Findings: mildly displaced intertrochanteric fracture and displaced oblique femur shaft fracture Complications: none Other Other Information/Narrative: Surgical briefing with all in agreement. iv abx and TXA. Spinal anesthesia with sedation. Supine on [place] table all alyson prominences padded and nerves relieved. Closed reduction with fluoro guidance using R hip flexion, neutral rotation, gentle traction, and anterior translation of the distal fragment with a crutch. Downward translation of the proximal femoral shaft fragment was achieved at first with manipulation and then intraop with a ball-spike pusher instrument. Right LE sterilely prepped and draped. AP and lateral fluoroscopy to place guidewire as posteriorly and medially as possible while holding the femur r educed with the ball-spike pusher. Over-reamed with 12.5mm drill. Curved tip guidewire guide inserted and used to reduce the fracture and pass the guidewire. Confirmed across the fracture and at metaphysis of distal femur on AP and lateral views. Measured and 42cm selected. Entry reamer, then with flexible reaming (still holding fracture reduced with ball-spike crib clerk), chatter encountered at 10mm-10.5mm. Flexible-reamed to 11.5mm and 10mm x 420mm nail inserted to good depth on fluoro guidance. Guidewire removed. While maintaining reduction with the ball-spike tool, the cephalomedullary screw was placed with the separate compression screw in the S&N intertan system. Excellent reduction and compression of the intertroch fracture was achieved with the compression screw. Traction was released in stages and with full release the femoral shaft fracture was reduced. The Ball-spike was removed after C-M screw placement and attention turned to distal interlocks. A static and a dynamic interlock screw were placed using perfect port gamble technique. Final fluoro views were obtained confirming optimal reduction and hardware position. The wounds were copiously irrigated, vanco powder applied to deep surfaces, and closed with 0-PDS, 2-0 PDS and alvaro. Mepilex dressings applied. Post op plan: Routine ABx and DVT prophylaxis. PT consult weight bearing as tolerated on Right lower extremity with a walker for at least 8-12 weeks. Follow up inpatient care starting POD [address] Estevez in orthopedics and the hospitalist Dr. Lauren. I will be available by phone for any concerns should they arise. Patient and medical team are aware of the coverage plan.
--- NOTE | 2024-10-07 14:47 | XRAY Report ---
PROCEDURE: FL OR C-Arm Procedure INDICATIONS: intra-op use TECHNIQUE: Intraoperative fluoroscopic guidance was provided and low-resolution fluoroscopic spot films were obtained. COMPARISON: None. FINDINGS: Low-resolution intraoperative spot films show intratrochanteric fracture transfixed by femoral nail and blade and good position IMPRESSION: Fluoroscopic guidance. Reviewed by: Carlos Schuster MD on 10/07/2024 1:45 PM LAZ Approved by: Carlos Schuster MD on 10/07/2024 1:45 PM AKRANDY Station ID: [id number]
[2024-10-07] MEDS: NS W/20 MEQ KCL 1,000 ML IV SCH (14:49)
[2024-10-07] MEDS: ACETAMINOPHEN 500 MG TABLET PO SCH (15:00)
--- NOTE | 2024-10-07 15:52 | PT Plan of Care ---
PT Plan of Care Physical Therapy Plan of Care: Diagnosis Diagnosis R proximal femur fx Diagnosis s/p R femoral nailing Referring Provider Víctor Shaw Patient Status Inpatient Chief Complaint Chief Complaint pain, limited mobility Onset of Chief Complaint 10/06/24 Medical History (Updated 10/07/24 @ 11:11 by Sarahy Lion CRNA) Type 2 diabetes mellitus High cholesterol Arthritis Hypertension Assessment Assessment Pt is an 83yo M referred for PT eval s/p GLF on 10/06/24 with mildly displaced R femur fx, now POD0 s/p R hip nailing. Admitted with fx, fever and pna. PMH includes psoriatic arthritis, ankylosing spondylitis, DM, and chronic lung scarring. Please see medical record for further PMH. 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 Pt lives in [facility] with (present in room during eval), 2STE and normally Diane at baseline using a walking pole. Cleared for eval by ortho and hospitalist, WBAT. Upon PT eval, met supine in bed vitals WNL, on 4L with SpO2 93%. A&Ox2-3 but MARY'S IGLOO and distractible d/t recent anesthesia. Bed level assessment only during PT eval as pt just returned to ICU bed from PACU and not yet oriented enough for out of bed mobility assessment. Pt demonstrates active motion of R ankle and intact but reduced light touch sensation of RLE. No quad activation present. LLE AROM and strength WNL. Pt requires maxAx2 for bed mobility, rolling, and repositioning. Hold out of bed mobility pending improved motor and sensory return to RLE. Plan for standing transfer and progression of activity in AM. Given significance of orthopedic surgery, active pna and O2 needs along with impairments in strength and functional indep, pt will benefit from skilled PT in acute setting to progress functional mobility. When medically clear, PT rec dc to SNF for continued rehab prior to returning home. Goals Improve bed mobility to: Contact Guard Improve supine to sit to: Contact Guard Improve sit to stand to: Minimal Assist Improve pivot transfer ability Minimal Assist to: Improve sit to supine to: Contact Guard Improve gait ability to: Min A Assistive Device Used: Front Wheeled Walker Improve Sitting Balance to: Good Improve Standing Balance to: Good PT Plan of Care Frequency 1-2x/day Duration Until discharge Discharge Recommendations Discharge Location [facility] [place] Equipment Recommended Front wheeled walker Transport Needs at Discharge B.L.S Other BLS d/t acute fx
[2024-10-07] MEDS ORDERED: SODIUM CHLORIDE FLUSH 0.9% 10 ML SYRINGE IVP SCH (17:00)
--- NOTE | 2024-10-07 18:36 | PROVIDER PROGRESS NOTE ---
Subjective Prog Note Date Prog Note Date: 10/07/24 Prog Note Time: 18:13 Subjective Subjective: Pt seen post op this afternoon. He has intermittent episodes of fever with diaphoresis. No pain. Denies have cough in recent days. States GI symptoms are chronic and he has had fecal urgency for some time. No abd pain. Notes nocturia, urinary hesitancy, dribbling, frequency, no dysuria. Never diagnosed with BPH. Ortho noted difficulty to pass crowe in OR today and suspect BPH. Pt reports episode of severe viral pna a few years ago that required admission to hospital. He has been on remicaid for many years. Current Medications Current Medications Current Medications: Current Medications Generic Name Dose Route Start Last Admin Trade Name Freq PRN Reason Stop Dose Admin Acetaminophen 1,000 mg 10/07/24 13:48 10/07/24 15:00 Acetaminophen 500 Mg Tablet PO 1,000 mg Q6H DUNIA Administration Alcohol 1 amp 10/07/24 21:00 Ethyl Alcohol 62% Swab Ampule FLORENCIO BID DUNIA Aspirin 81 mg 10/07/24 21:00 Aspirin Ec 81 Mg Tablet PO BID DUNIA Atorvastatin Calcium 80 mg 10/06/24 09:00 10/07/24 08:55 Atorvastatin 40 Mg Tablet PO Not Given DAILY DUNIA Ceftriaxone Sodium 1 gm 10/06/24 17:47 10/07/24 08:54 Ceftriaxone 1 Gm Vial IVP 1 gm DAILY DUNIA Administration Celecoxib 200 mg 10/07/24 21:00 Celecoxib 100 Mg Capsule PO BID DUNIA Docusate Sodium 100 mg 10/07/24 13:48 Docusate Sodium 100 Mg Capsule PO BID PRN Constipation Hydromorphone HCl 0.5 mg 10/06/24 06:23 10/07/24 05:10 Hydromorphone 0.5 Mg/0.5 Ml Syringe IVP 0.5 mg Q2H PRN Administration Pain 8 to 10 Sodium Chloride 1,000 mls @ 100 mls/hr 10/06/24 06:23 10/07/24 17:10 Normal Saline 0.9% IV 100 mls/hr .Q10H DUNIA Administration Ciprofloxacin 400 mg in 200 mls @ 200 mls/hr 10/06/24 10:00 10/07/24 17:15 Cipro 400 Mg/200 Ml IV Infused Q12H DUNIA Infusion Metronidazole 500 mg in 100 mls @ 100 mls/hr 10/06/24 10:00 10/07/24 15:53 Flagyl 500 Mg/100 Ml IV Infused Q8H [facility] Infusion Insulin Human Lispro 1 - 5 unit 10/07/24 21:00 Insulin Lispro 300 Unit/3 Ml Pen SUBQ 0800,1200,1700,2100 [facility] Protocol Ondansetron HCl 4 mg 10/06/24 06:23 Ondansetron 4 Mg/2 Ml Vial IVP Q6HR PRN Nausea / Vomiting Sodium Chloride 10 ml 10/06/24 06:23 Sodium Chloride Flush 0.9% 10 Ml Syringe IVP PRN PRN NEEDED PER PROVIDER ORDERS Sodium Chloride 10 ml 10/06/24 09:00 10/07/24 17:46 Sodium Chloride Flush 0.9% 10 Ml Syringe IVP 10 ml 0100,0900,1700 [facility] Administration Tramadol HCl 50 mg 10/07/24 13:48 Tramadol 50 Mg Tablet PO Q4HR PRN Severe Pain (Level 7-10) Objective Vital Signs/Intake & Output Reviewed Vital Signs: Yes Vital Signs: Vital Signs x48h Temp Pulse Pulse Resp BP BP Pulse Ox 10/07/24 17:00 70 17 98/57 L 95 10/07/24 15:45 36.9 C 76 16 103/48 L 92 10/07/24 15:15 78 21 102/54 L 96 10/07/24 14:45 79 28 H 103/43 L 96 10/07/24 14:30 79 23 109/46 L 95 10/07/24 14:15 38.0 C H 78 25 H 108/45 L 95 10/07/24 14:00 38.1 C H 79 20 115/53 L 95 10/07/24 13:54 38.1 C H 76 13 117/51 L 94 10/07/24 13:40 36.6 C 75 20 113/56 L 93 10/07/24 13:35 78 16 117/50 L 92 10/07/24 13:30 83 26 H 110/50 L 93 10/07/24 13:26 77 24 110/57 L 93 10/07/24 13:20 82 20 127/50 L 92 10/07/24 13:19 36.9 C 78 22 93 10/07/24 13:15 81 20 96 10/07/24 13:05 85 22 133/48 H 93 10/07/24 13:00 78 21 136/54 H 100 O2 Flow Rate 10/07/24 17:00 4 10/07/24 15:45 4 10/07/24 15:15 96 10/07/24 14:45 4 10/07/24 14:30 4 10/07/24 14:15 4 10/07/24 14:00 4 10/07/24 13:54 4 10/07/24 13:40 10/07/24 13:35 10/07/24 13:30 10/07/24 13:26 10/07/24 13:20 10/07/24 13:19 10/07/24 13:15 10/07/24 13:05 10/07/24 13:00 Intake & Output: Intake & Output 10/04/24 10/05/24 10/06/24 10/07/24 23:59 23:59 23:59 23:59 Intake Total 2548 / 2548 4245 / 4245 Output Total 1000 / 1000 665 / 665 Balance 1548 / 1548 3580 / 3580 Weight (kg) 96 kg Objective Comments/Other: elderly man lying in bed, NAD, sclera anicteric, MMM LCTAB, nonlabored RRR, S1S2, no edema abd soft, NT, ND, BS+ AAO x3, strength 5/5 UE and LE bilat, normal tone, no tremor crowe draining clear yellow urine no calf tenderness no rash Lab Results 10/07/24 04:15 10/07/24 04:15 Other Labs: Lab Results x24hrs 10/07/24 10/07/24 10/07/24 Range/Units 13:33 10:33 09:40 WBC (4.8-10.8) x10^3/uL RBC (4.70-6.10) 10^6/uL Hgb (14.0-18.0) g/dL Hct (42.0-52.0) % MCV (80.0-94.0) fL MCH (27.0-31.0) pg MCHC (32.0-36.0) g/dL RDW (12.0-15.0) % Plt Count (130-450) 10^3/uL MPV (7.4-11.4) fL Neut # (Auto) (1.5-6.6) 10^3/uL Lymph # (Auto) (1.5-3.5) 10^3/uL Dupage # (Auto) (0.0-1.0) 10^3/uL Eos # (Auto) (0.0-0.7) 10^3/uL Baso # (Auto) (0.0-0.1) 10^3/uL Absolute Nucleated RBC x10^3/uL Nucleated RBC % /100WBC APTT (24.9-33.3) secs Sodium (135-145) mmol/L Potassium (3.5-4.5) mmol/L Chloride (101-111) mmol/L Carbon Dioxide (21-32) mmol/L Anion Gap (6-13) BUN (6-20) mg/dL Creatinine (0.6-1.3) mg/dL Estimated GFR (MDRD) (>89) Glucose (74-104) mg/dL POC Whole Bld Glucose 128 (70-100) mg/dL Calcium (8.5-10.3) mg/dL Blood Type B POSITIVE Blood Type Recheck B POSITIVE Antibody Screen NEGATIVE Crossmatch IS Only See Detail 10/07/24 10/07/24 10/07/24 Range/Units 07:48 06:03 04:15 WBC 6.0 (4.8-10.8) x10^3/uL RBC 2.63 L (4.70-6.10) 10^6/uL Hgb 9.3 L (14.0-18.0) g/dL Hct 27.8 L (42.0-52.0) % MCV 105.7 H (80.0-94.0) fL MCH 35.4 H (27.0-31.0) pg MCHC 33.5 (32.0-36.0) g/dL RDW 12.5 (12.0-15.0) % Plt Count 126 L (130-450) 10^3/uL MPV 10.5 (7.4-11.4) fL Neut # (Auto) 4.7 (1.5-6.6) 10^3/uL Lymph # (Auto) 0.7 L (1.5-3.5) 10^3/uL Dupage # (Auto) 0.5 (0.0-1.0) 10^3/uL Eos # (Auto) 0.0 (0.0-0.7) 10^3/uL Baso # (Auto) 0.0 (0.0-0.1) 10^3/uL Absolute Nucleated RBC 0.00 x10^3/uL Nucleated RBC % 0.0 /100WBC APTT 25.9 (24.9-33.3) secs Sodium 130 L (135-145) mmol/L Potassium 4.0 (3.5-4.5) mmol/L Chloride 98 L (101-111) mmol/L Carbon Dioxide 27 (21-32) mmol/L Anion Gap 5.0 L (6-13) BUN 20 (6-20) mg/dL Creatinine 1.3 (0.6-1.3) mg/dL Estimated GFR (MDRD) 53 L (>89) Glucose 142 H (74-104) mg/dL POC Whole Bld Glucose 149 (70-100) mg/dL Calcium 7.4 L (8.5-10.3) mg/dL Blood Type Blood Type Recheck Antibody Screen Crossmatch IS Only 10/06/24 Range/Units 23:57 WBC (4.8-10.8) x10^3/uL RBC (4.70-6.10) 10^6/uL Hgb (14.0-18.0) g/dL Hct (42.0-52.0) % MCV (80.0-94.0) fL MCH (27.0-31.0) pg MCHC (32.0-36.0) g/dL RDW (12.0-15.0) % Plt Count (130-450) 10^3/uL MPV (7.4-11.4) fL Neut # (Auto) (1.5-6.6) 10^3/uL Lymph # (Auto) (1.5-3.5) 10^3/uL Dupage # (Auto) (0.0-1.0) 10^3/uL Eos # (Auto) (0.0-0.7) 10^3/uL Baso # (Auto) (0.0-0.1) 10^3/uL Absolute Nucleated RBC x10^3/uL Nucleated RBC % /100WBC APTT (24.9-33.3) secs Sodium (135-145) mmol/L Potassium (3.5-4.5) mmol/L Chloride (101-111) mmol/L Carbon Dioxide (21-32) mmol/L Anion Gap (6-13) BUN (6-20) mg/dL Creatinine (0.6-1.3) mg/dL Estimated GFR (MDRD) (>89) Glucose (74-104) mg/dL POC Whole Bld Glucose 164 (70-100) mg/dL Calcium (8.5-10.3) mg/dL Blood Type Blood Type Recheck Antibody Screen Crossmatch IS Only Assessment/Plan Problem List (1) 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 Found to have mildly displaced R IT femur fracture, fever, hyponatremia, BRENDA infiltrate on mild mediastinal lymphadenopathy on CT. 1. R IT femur fracture: s/p operative repair with Right hip nailing. Minimal blood loss. - discussed case with Dr. Shaw - analgesics- tylenol, tramadol prn - dvt ppx: asa 81 BID x 4 wks, compression stockings, SCDs 2. sepsis due to BRENDA pneumonia: most likely source for fevers are lung infection. GI another consideration but today pt tells me these symptoms are more chronic. He is at risk for uncommon pathogens, including fugal and viral, given immunosuppression. Doubt pulmonary TB given no cough or hemoptysis, wt loss, night sweats. Continues to spike fever post op. CT negative for fat emboli signs and pt is not hypoxic. Blood cx NG 1 d. - given persistent fevers and immunosuppression, will broaded abx- cefepime, vancomycin, azithro - f/u blood cx - obtain ur legionella 3. hyponatremia: euvolemic. Likely due to HCTZ, SIADH from pain may be contributing. - hold diuretic - miv LR 100 ml/hr - ur osmols, serum osmol, Ur Na if persists 4. macrocytic anemia: some blood loss related to femur fracture. Minimal blood loss reported in OR. - obtain B12, Fe studies, TSH 5. suspect BPH: symptoms consistent with this diagnosis. Difficult crowe placement. - plan tamsulosin after BP stabilizes - keep crowe for a couple days, then TOV 6. psoriatic arthrtis, : - hold remicade - analgesics prn dvt ppx: asa, SCDs per ortho Dispo plan and GOC: Came from home with . PT eval- likely will need SNF for PT. Qualifiers: Fever type: unspecified Qualified Code(s): R50.9 - Fever, unspecified
[2024-10-07] MEDS: CEFEPIME 2 GM in SODIUM CHLORIDE 0.9% MINIBAG 100 ML IV SCH (18:53)
[2024-10-07] MEDS: VANCOMYCIN INJ 2 GM in SODIUM CHLORIDE 0.9% 500 ML IV ONE (19:48)
[2024-10-07] MEDS: ASPIRIN EC 81 MG TABLET PO SCH (21:25)
[2024-10-07] MEDS: ethyl alcohoL 62% SWAB AMPULE NAS SCH (21:25)
[2024-10-07] MEDS: CELECOXIB 100 MG CAPSULE PO SCH (21:25)
[2024-10-07] MEDS ORDERED: MELATONIN 3 MG TABLET PO PRN (22:00)
[2024-10-07] MEDS: INSULIN LISPRO 300 UNIT/3 ML PEN SUBQ SCH (22:32)
[2024-10-08 02:12] LABS: B. PARAPERTUSSIS- RESP PCR PAN NOT DETECTED; B. PERTUSSIS- RESP PCR PANEL NOT DETECTED; C. PNEUMONIAE- RESP PCR PANEL NOT DETECTED; CORONAVIRUS 229E-RESP PCR NOT DETECTED; CORONAVIRUS HKU1-RESP PCR NOT DETECTED; CORONAVIRUS NL63-RESP PCR NOT DETECTED; CORONAVIRUS OC43-RESP PCR NOT DETECTED; HUMAN METAPNEUMOVIRUS NOT DETECTED; INFLUENZA A- RESP PCR PANEL NOT DETECTED; INFLUENZA B - RESP PCR PANEL NOT DETECTED; M. PNEUMONIAE- RESP PCR PANEL NOT DETECTED; PARAINFLUENZA VIRUS 1 NOT DETECTED; PARAINFLUENZA VIRUS 2 NOT DETECTED; PARAINFLUENZA VIRUS 4 NOT DETECTED; RHINOVIRUS/ENTEROVIRUS NOT DETECTED; RSV- RESP PCR PANEL NOT DETECTED; SARS-CoV-2 -RESP PCR PANEL NOT DETECTED
[2024-10-08 05:16] LABS: HCT - HEMATOCRIT 23.0 % (42.0-52.0); HGB - HEMOGLOBIN 7.5 g/dL (14.0-18.0); MEAN PLATELET VOLUME 10.8 fL (7.4-11.4); NRBC ABSOLUTE COUNT (AUTO) 0.00 x10^3/uL; NUCLEATED RED BLOOD CELLS AUTO 0.0 /100WBC; PLT - PLATELET COUNT 95 10^3/uL (130-450); RED CELL DISTRIBUTION WIDTH 12.5 % (12.0-15.0)
[2024-10-08 05:36] LABS: ALT ALANINE AMINOTRANSFERASE 32 IU/L (10-60); AST ASPARTATE AMINOTRANSFERASE 64 IU/L (10-42); BUN - BLOOD UREA NITROGEN 25 mg/dL (6-20); CARBON DIOXIDE - CO2 25 mmol/L (21-32); CREATININE 1.2 mg/dL (0.6-1.3); GFR - MDRD 58 (>89); PHOSPHORUS 3.1 mg/dL (2.5-5.0)
[2024-10-08] MEDS: MAGNESIUM SULFATE 2 GRAM 2 GM/50 ML BAG IV ONE (09:07)
--- NOTE | 2024-10-08 09:11 | PHARMACY PROGRESS NOTE ---
Vancomycin Therapy Monitoring Patient Information Vancomycin Pt Height (inches): 72 Vancomycin Patient Weight (kg): 96 Vanco Rx Serum Creatinine (mg/dL): 1.2 Vancomycin Therapy BUN (mg/dL): 25 Vancomycin Therapy Calculated Creatinine Cl (ml/min): 64 Concurrent Antibiotics: cefepime, azithromycin Vancomycin Therapy Goals Treatment Indication: cap Vancomycin Target Range: Vancomycin AUC Target Range 400-600 mcg*h/ml Assessment of Current Therapy Vancomycin Loading Dose (GM, if applicable): 2G Current Vancomycin Maintenance Regimen (if applicable): 1.5G Q24H Vancomycin Current Regimen: Subtherapeutic Levels Estimated Cmax (Peak, mcg/ml): 28..8 Estimated Cmin (Trough, mcg/ml): 13.9 Estimated AUC (mcg*hr/ml): 492 Plan: Pharmacy recommendation: Continue current regimen Vancomycin Level Recommendation: Vancomycin Level Recommendation Areas for additonal monitoring Areas for additional monitoring: Therapy de-escalation based on culture results and Acute Kidney Injury
[2024-10-08] MEDS: MAGNESIUM SULFATE 1 GM/2 ML VIAL IVP STA (13:33)
--- NOTE | 2024-10-08 16:23 | PROVIDER PROGRESS NOTE ---
Subjective Prog Note Date Prog Note Date: 10/08/24 Prog Note Time: 16:16 Subjective Subjective: Pt feels better. Occasional cough with sputum he is having trouble expectorating. Pain controlled. No BM since surgery. Tolerating po intake. No gross bleeding or melena. Current Medications Current Medications Current Medications: Current Medications Generic Name Dose Route Start Last Admin Trade Name Freq PRN Reason Stop Dose Admin Acetaminophen 1,000 mg 10/07/24 13:48 10/08/24 15:07 Acetaminophen 500 Mg Tablet PO 1,000 mg Q6H DUNIA Administration Alcohol 1 amp 10/07/24 21:00 10/08/24 09:02 Ethyl Alcohol 62% Swab Ampule FLORENCIO Not Given BID DUNIA Aspirin 81 mg 10/07/24 21:00 10/08/24 08:57 Aspirin Ec 81 Mg Tablet PO 81 mg BID DUNIA Administration Atorvastatin Calcium 80 mg 10/06/24 09:00 10/08/24 08:58 Atorvastatin 40 Mg Tablet PO 80 mg DAILY DUNIA Administration Azithromycin 500 mg 10/08/24 19:00 Azithromycin 250 Mg Tablet PO 10/11/24 18:59 DAILY DUNIA Celecoxib 200 mg 10/07/24 21:00 10/08/24 10:49 Celecoxib 100 Mg Capsule PO 200 mg BID DUNIA Administration Docusate Sodium 100 mg 10/07/24 13:48 Docusate Sodium 100 Mg Capsule PO BID PRN Constipation Guaifenesin 600 mg 10/08/24 13:00 10/08/24 13:28 Guaifenesin 600 Mg Tablet PO Not Given BID DUNIA Hydromorphone HCl 0.5 mg 10/06/24 06:23 10/07/24 05:10 Hydromorphone 0.5 Mg/0.5 Ml Syringe IVP 0.5 mg Q2H PRN Administration Pain 8 to 10 Sodium Chloride 1,000 mls @ 100 mls/hr 10/06/24 06:23 10/08/24 08:00 Normal Saline 0.9% IV 100 mls/hr .Q10H DUNIA Administration Cefepime HCl 2 gm/ Sodium 100 mls @ 200 mls/hr 10/07/24 19:00 10/08/24 11:15 Chloride IV Infused Q8H DUNIA Infusion Vancomycin HCl 1 gm/ 500 mls @ 250 mls/hr 10/08/24 19:00 Vancomycin HCl 500 mg/ Sodium IV Chloride Q24H [facility] Insulin Human Lispro 1 - 5 unit 10/07/24 21:00 10/08/24 12:14 Insulin Lispro 300 Unit/3 Ml Pen SUBQ Not Given 0800,1200,1700,2100 [facility] Protocol Melatonin 3 mg 10/07/24 22:00 Melatonin 3 Mg Tablet PO QPM PRN sleep Ondansetron HCl 4 mg 10/06/24 06:23 Ondansetron 4 Mg/2 Ml Vial IVP Q6HR PRN Nausea / Vomiting Sodium Chloride 10 ml 10/06/24 06:23 Sodium Chloride Flush 0.9% 10 Ml Syringe IVP PRN PRN NEEDED PER PROVIDER ORDERS Sodium Chloride 10 ml 10/06/24 09:00 10/08/24 09:09 Sodium Chloride Flush 0.9% 10 Ml Syringe IVP 10 ml 0100,0900,1700 [facility] Administration Tramadol HCl 50 mg 10/07/24 13:48 Tramadol 50 Mg Tablet PO Q4HR PRN Severe Pain (Level 7-10) Objective Vital Signs/Intake & Output Reviewed Vital Signs: Yes Vital Signs: Vital Signs x48h Temp Pulse Resp BP Pulse Ox 10/08/24 12:28 36.5 C 83 22 124/50 L 94 10/08/24 09:18 85 17 115/50 L 96 Intake & Output: Intake & Output 10/05/24 10/06/24 10/07/24 10/08/24 23:59 23:59 23:59 23:59 Intake Total 2548 / 2548 5845 / 5845 1490 / 1490 Output Total 1000 / 1000 665 / 665 640 / 640 Balance 1548 / 1548 5180 / 5180 850 / 850 Weight (kg) 96 kg Objective Comments/Other: elderly man lying in bed, NAD, sclera anicteric, MMM Lungs: Left basilar crackles, nonlabored RRR, S1S2, no edema abd soft, NT, ND, BS+ AAO x3, strength 5/5 UE and LE bilat, normal tone, no tremor crowe draining clear yellow urine sausage digits hands, no erythema or warmth- no active synovitis Lab Results 10/08/24 05:06 10/08/24 05:06 Other Labs: Lab Results x24hrs 10/08/24 10/08/24 10/08/24 Range/Units 09:00 05:06 01:00 WBC 4.0 L (4.8-10.8) x10^3/uL RBC 2.16 L (4.70-6.10) 10^6/uL Hgb 7.5 L (14.0-18.0) g/dL Hct 23.0 L (42.0-52.0) % MCV 106.5 H (80.0-94.0) fL MCH 34.7 H (27.0-31.0) pg MCHC 32.6 (32.0-36.0) g/dL RDW 12.5 (12.0-15.0) % Plt Count 95 L (130-450) 10^3/uL MPV 10.8 (7.4-11.4) fL Neut # (Auto) 3.0 (1.5-6.6) 10^3/uL Lymph # (Auto) 0.5 L (1.5-3.5) 10^3/uL Kidder # (Auto) 0.4 (0.0-1.0) 10^3/uL Eos # (Auto) 0.1 (0.0-0.7) 10^3/uL Baso # (Auto) 0.0 (0.0-0.1) 10^3/uL Absolute Nucleated RBC 0.00 x10^3/uL Nucleated RBC % 0.0 /100WBC Sodium 135 (135-145) mmol/L Potassium 3.7 (3.5-4.5) mmol/L Chloride 105 (101-111) mmol/L Carbon Dioxide 25 (21-32) mmol/L Anion Gap 5.0 L (6-13) BUN 25 H (6-20) mg/dL Creatinine 1.2 (0.6-1.3) mg/dL Estimated GFR (MDRD) 58 L (>89) Glucose 119 H (74-104) mg/dL Calcium 7.0 L (8.5-10.3) mg/dL Phosphorus 3.1 (2.5-5.0) mg/dL Magnesium 1.6 L (1.7-2.3) mg/dL Iron 19 L (50-212) ug/dL TIBC TNP % Saturation TNP Transferrin < 75 L (203-362) mg/dL Ferritin 1270.4 H (23.9-336.2) ng/mL Total Bilirubin 0.5 (0.2-1.0) mg/dL AST 64 H (10-42) IU/L ALT 32 (10-60) IU/L Alkaline Phosphatase 32 L (42-121) IU/L Total Protein 5.2 L (6.4-8.9) g/dL Albumin 2.4 L (3.2-5.5) g/dL Globulin 2.8 (2.1-4.2) g/dL Albumin/Globulin Ratio 0.9 L (1.0-2.2) Vitamin B12 855 (180-914) pg/mL TSH 1.42 (0.34-5.60) uIU/mL Nasal Adenovirus (PCR) NOT DETECTED Nasal B. parapertussis DNA (PCR) NOT DETECTED Nasal Coronavir 229E PCR NOT DETECTED Nasal Coronavir HKU1 PCR NOT DETECTED Nasal Coronavir NL63 PCR NOT DETECTED Nasal Coronavir OC43 PCR NOT DETECTED Nasal Enterovir/Rhinovir PCR NOT DETECTED Nasal Influenza B PCR NOT DETECTED Nasal Influenza A PCR NOT DETECTED Nasal Parainfluen 1 PCR NOT DETECTED Nasal Parainfluen 2 PCR NOT DETECTED Nasal Parainfluen 3 PCR NOT DETECTED Nasal Parainfluen 4 PCR NOT DETECTED Nasal RSV (PCR) NOT DETECTED Nasal Screen MRSA (PCR) NEGATIVE (NEGATIVE) Nasal B.pertussis DNA PCR NOT DETECTED Nasal C.pneumoniae (PCR) NOT DETECTED Florencio Human Metapneumo PCR NOT DETECTED Nasal M.pneumoniae (PCR) NOT DETECTED Nasal SARS-CoV-2 (PCR) NOT DETECTED Assessment/Plan Problem List (1) 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 Found to have mildly displaced R IT femur fracture, fever, hyponatremia, BRENDA infiltrate on mild mediastinal lymphadenopathy on CT. 1. R IT femur fracture: s/p operative repair with Right hip nailing 10/07/[address] Shaw. Minimal blood loss. - discussed case with Dr. Shaw - analgesics- tylenol, tramadol prn - dvt ppx: asa 81 BID x 4 wks, compression stockings, SCDs 2. BRENDA pneumonia, acute hypoxic respiratory failure: most likely source for fevers are lung infection. GI another consideration but today pt tells me these symptoms are more chronic. He is at risk for uncommon pathogens, including fugal and viral, given immunosuppression. Doubt pulmonary TB given no cough or hemoptysis, wt loss, night sweats. Afebrile since yesterday afternoon. Continued episodes of diaphoresis. Blood cx NGTD. Now weaned to RA. - given persistent fevers and immunosuppression- cefepime, vancomycin, azithro - f/u blood cx - sputum cx - obtain ur legionella, galactomannon and beta D glucan, PCP DFA, Ur histo Ag - nasal MRSA 3. hyponatremia: euvolemic. Likely due to HCTZ, SIADH from pain may be contributing. Improving Na. - hold diuretic - d/c iv fluids 4. macrocytic anemia: some blood loss related to femur fracture. Minimal blood loss reported in OR. Amara some dilutional component. Consider marrow suppression from sepsis. Infliximab is associated with anemia in < 11% of pts and rarely pancytopenia and lymphoma. B12 wnl, TSH wnl. - trend CBC daily, transfuse if < 7. Pt declined transfusion today. - obtain folate level 5. suspect BPH: symptoms consistent with this diagnosis. Difficult crowe placement. - start tamsulosin - keep crowe for a couple days, then TOV 6. psoriatic arthrtis, : - hold remicade - analgesics prn dvt ppx: asa, SCDs per ortho Dispo plan and GOC: Came from home with . PT eval- likely will need SNF for PT. updated at bedside and she agrees with plan. Qualifiers: Fever type: unspecified Qualified Code(s): R50.9 - Fever, unspecified
[2024-10-08] MEDS ORDERED: AZITHROMYCIN 250 MG TABLET PO ONE (17:50)
[2024-10-08] MEDS: AZITHROMYCIN 250 MG TABLET PO SCH (18:02)
[2024-10-08] MEDS: VANCOMYCIN INJ 1 GM, VANCOMYCIN INJ 500 MG in SODIUM CHLORIDE 0.9% 500 ML IV SCH (18:03)
[2024-10-08] MEDS: TAMSULOSIN 0.4 MG CAPSULE PO SCH (18:05)
[2024-10-08] MEDS ORDERED: AZITHROMYCIN 250 MG TABLET PO SCH (19:00)
[2024-10-09 06:08] LABS: HCT - HEMATOCRIT 23.1 % (42.0-52.0); HGB - HEMOGLOBIN 7.6 g/dL (14.0-18.0); MEAN PLATELET VOLUME 10.9 fL (7.4-11.4); NRBC ABSOLUTE COUNT (AUTO) 0.00 x10^3/uL; NUCLEATED RED BLOOD CELLS AUTO 0.0 /100WBC; PLT - PLATELET COUNT 112 10^3/uL (130-450); RED CELL DISTRIBUTION WIDTH 12.7 % (12.0-15.0)
[2024-10-09 06:29] LABS: BUN - BLOOD UREA NITROGEN 24.0 mg/dL (6-20); CARBON DIOXIDE - CO2 23.0 mmol/L (21-32); CREATININE 1.1 mg/dL (0.6-1.3); GFR - MDRD 64.0 (>89)
[2024-10-09] MEDS: CALCIUM CARBONATE CHEW 500 MG TABLET PO SCH (09:20)
[2024-10-09] MEDS: CHOLECALCIFEROL 25 MCG TABLET PO SCH (09:20)
[2024-10-09] MEDS: TAMSULOSIN 0.4 MG CAPSULE PO SCH (12:27)
[2024-10-09] MEDS: DOCUSATE SODIUM 100 MG CAPSULE PO PRN (12:27)
--- NOTE | 2024-10-09 18:53 | PROVIDER PROGRESS NOTE ---
Subjective Prog Note Date Prog Note Date: 10/09/24 Prog Note Time: 11:00 Subjective Subjective: No acute events. Pt feels better. Remains on RA, minimal cough and little sputum production. No pain. No BM since surgery but is passing flatus. Current Medications Current Medications Current Medications: Current Medications Generic Name Dose Route Start Last Admin Trade Name Freq PRN Reason Stop Dose Admin Acetaminophen 1,000 mg 10/07/24 13:48 10/09/24 16:46 Acetaminophen 500 Mg Tablet PO 1,000 mg Q6H DUNIA Administration Alcohol 1 amp 10/07/24 21:00 10/09/24 09:20 Ethyl Alcohol 62% Swab Ampule FLORENCIO Not Given BID DUNIA Aspirin 81 mg 10/07/24 21:00 10/09/24 09:20 Aspirin Ec 81 Mg Tablet PO Not Given BID DUNIA Atorvastatin Calcium 80 mg 10/06/24 09:00 10/09/24 09:19 Atorvastatin 40 Mg Tablet PO 80 mg DAILY DUNIA Administration Azithromycin 500 mg 10/08/24 19:00 10/09/24 09:20 Azithromycin 250 Mg Tablet PO 10/10/24 09:01 500 mg DAILY DUNIA Administration Calcium Carbonate/Glycine 500 mg 10/09/24 09:00 10/09/24 09:20 Calcium Carbonate Chew 500 Mg Tablet PO 500 mg BID DUNIA Administration Celecoxib 200 mg 10/07/24 21:00 10/09/24 09:19 Celecoxib 100 Mg Capsule PO 200 mg BID DUNIA Administration Cholecalciferol 25 mcg 10/09/24 09:00 10/09/24 09:20 Cholecalciferol 25 Mcg Tablet PO Not Given DAILY DUNIA Docusate Sodium 100 mg 10/07/24 13:48 10/09/24 12:27 Docusate Sodium 100 Mg Capsule PO 100 mg BID PRN Administration Constipation Guaifenesin 600 mg 10/08/24 13:00 10/09/24 09:21 Guaifenesin 600 Mg Tablet PO Not Given BID [facility] Cefepime HCl 2 gm/ Sodium 100 mls @ 200 mls/hr 10/07/24 19:00 10/09/24 11:55 Chloride IV Infused Q8H [facility] Infusion Insulin Human Lispro 1 - 5 unit 10/07/24 21:00 10/09/24 18:22 Insulin Lispro 300 Unit/3 Ml Pen SUBQ Not Given 0800,1200,1700,2100 [facility] Protocol Melatonin 3 mg 10/07/24 22:00 Melatonin 3 Mg Tablet PO QPM PRN sleep Ondansetron HCl 4 mg 10/06/24 06:23 Ondansetron 4 Mg/2 Ml Vial IVP Q6HR PRN Nausea / Vomiting Polyethylene Glycol 17 gm 10/09/24 12:00 10/09/24 12:27 Polyethylene Glycol 3350 17 Gm Packet PO 17 gm DAILY DUNIA Administration Sodium Chloride 10 ml 10/06/24 06:23 Sodium Chloride Flush 0.9% 10 Ml Syringe IVP PRN PRN NEEDED PER PROVIDER ORDERS Sodium Chloride 10 ml 10/06/24 09:00 10/09/24 18:23 Sodium Chloride Flush 0.9% 10 Ml Syringe IVP 10 ml 0100,0900,1700 DUNIA Administration Tamsulosin HCl 0.4 mg 10/09/24 12:10 10/09/24 12:27 Tamsulosin 0.4 Mg Capsule PO 0.4 mg DAILY DUNIA Administration Tramadol HCl 50 mg 10/07/24 13:48 Tramadol 50 Mg Tablet PO Q4HR PRN Severe Pain (Level 7-10) Objective Vital Signs/Intake & Output Reviewed Vital Signs: Yes Vital Signs: Vital Signs x48h Temp Pulse Resp BP Pulse Ox 10/09/24 17:00 36.6 C 77 20 101/50 L 96 10/09/24 13:50 36.6 C 86 18 118/52 L 95 Intake & Output: Intake & Output 10/06/24 10/07/24 10/08/24 10/09/24 23:59 23:59 23:59 23:59 Intake Total 2548 / 2548 5845 / 5845 3210 / 3210 1520 / 1520 Output Total 1000 / 1000 665 / 665 860 / 860 1075 / 1075 Balance 1548 / 1548 5180 / 5180 2350 / 2350 445 / 445 Weight (kg) 96 kg Objective Comments/Other: elderly man lying in bed, NAD, sclera anicteric, MMM Lungs: Left basilar crackles, nonlabored RRR, S1S2, no edema abd soft, NT, ND, BS+ AAO x3, strength 5/5 UE and LE bilat, normal tone, no tremor crowe draining clear yellow urine sausage digits hands, no erythema or warmth- no active synovitis Lab Results 10/09/24 05:56 10/09/24 05:56 Other Labs: Lab Results x24hrs 10/09/24 10/09/24 10/09/24 Range/Units 16:45 11:21 07:51 WBC (4.8-10.8) x10^3/uL RBC (4.70-6.10) 10^6/uL Hgb (14.0-18.0) g/dL Hct (42.0-52.0) % MCV (80.0-94.0) fL MCH (27.0-31.0) pg MCHC (32.0-36.0) g/dL RDW (12.0-15.0) % Plt Count (130-450) 10^3/uL MPV (7.4-11.4) fL Neut # (Auto) (1.5-6.6) 10^3/uL Lymph # (Auto) (1.5-3.5) 10^3/uL Hudspeth # (Auto) (0.0-1.0) 10^3/uL Eos # (Auto) (0.0-0.7) 10^3/uL Baso # (Auto) (0.0-0.1) 10^3/uL Absolute Nucleated RBC x10^3/uL Nucleated RBC % /100WBC Sodium (135-145) mmol/L Potassium (3.5-4.5) mmol/L Chloride (101-111) mmol/L Carbon Dioxide (21-32) mmol/L Anion Gap (6-13) BUN (6-20) mg/dL Creatinine (0.6-1.3) mg/dL Estimated GFR (MDRD) (>89) Glucose (74-104) mg/dL POC Whole Bld Glucose 163 150 129 (70-100) mg/dL Calcium (8.5-10.3) mg/dL Magnesium (1.7-2.3) mg/dL Folate (5.90 - >24.8) ng/mL 10/09/24 10/08/24 Range/Units 05:56 20:49 WBC 4.2 L (4.8-10.8) x10^3/uL RBC 2.18 L (4.70-6.10) 10^6/uL Hgb 7.6 L (14.0-18.0) g/dL Hct 23.1 L (42.0-52.0) % MCV 106.0 H (80.0-94.0) fL MCH 34.9 H (27.0-31.0) pg MCHC 32.9 (32.0-36.0) g/dL RDW 12.7 (12.0-15.0) % Plt Count 112 L (130-450) 10^3/uL MPV 10.9 (7.4-11.4) fL Neut # (Auto) 3.1 (1.5-6.6) 10^3/uL Lymph # (Auto) 0.6 L (1.5-3.5) 10^3/uL Hudspeth # (Auto) 0.3 (0.0-1.0) 10^3/uL Eos # (Auto) 0.2 (0.0-0.7) 10^3/uL Baso # (Auto) 0.0 (0.0-0.1) 10^3/uL Absolute Nucleated RBC 0.00 x10^3/uL Nucleated RBC % 0.0 /100WBC Sodium 137 (135-145) mmol/L Potassium 3.5 (3.5-4.5) mmol/L Chloride 109 (101-111) mmol/L Carbon Dioxide 23 (21-32) mmol/L Anion Gap 5.0 L (6-13) BUN 24 H (6-20) mg/dL Creatinine 1.1 (0.6-1.3) mg/dL Estimated GFR (MDRD) 64 L (>89) Glucose 133 H (74-104) mg/dL POC Whole Bld Glucose 204 (70-100) mg/dL Calcium 7.1 L (8.5-10.3) mg/dL Magnesium 2.2 (1.7-2.3) mg/dL Folate 11.9 (5.90 - >24.8) ng/mL Assessment/Plan Problem List (1) 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 Found to have mildly displaced R IT femur fracture, fever, hyponatremia, BRENDA infiltrate on mild mediastinal lymphadenopathy on CT. 1. R IT femur fracture: s/p operative repair with Right hip nailing 10/07/[address] Shaw. Minimal blood loss. - analgesics- tylenol, tramadol prn - dvt ppx: asa 81 BID x 4 wks, compression stockings, SCDs - ca/vit D per nutrition 2. BRENDA pneumonia: most likely source for fevers are lung infection. He is at risk for uncommon pathogens, including fugal and viral, given immunosuppression. Doubt pulmonary TB given no cough or hemoptysis, wt loss, night sweats. Afebrile > 48 hrs. Blood cx NGTD. Now weaned to RA. Nasal MRSA neg. - d/c vanc - cefepime, azithro- switch to po abx soon - f/u blood cx - sputum cx - obtain ur legionella, galactomannon and beta D glucan, PCP DFA, Ur histo Ag - attempted to contact his primary grinder gear Dr. Cooper but no answer 3. hyponatremia: Likely due to HCTZ, SIADH from pain. REsolved. - monitor - resume diuretics soon 4. macrocytic anemia: some blood loss related to femur fracture. Minimal blood loss reported in OR. Amara some dilutional component. Consider marrow suppression from sepsis. Infliximab is associated with anemia in < 11% of pts and rarely pancytopenia and lymphoma. B12 wnl, TSH wnl. H/H stable today. - trend CBC daily, transfuse if < 7 5. suspect BPH: symptoms consistent with this diagnosis. Difficult crowe placement. - start tamsulosin - TOV tonight at midnight 6. psoriatic arthrtis, : - hold remicade - analgesics prn 7. constipation: - miralax dvt ppx: asa, SCDs per ortho Dispo plan and GOC: Came from home with . Planning SNF placement for PT. updated at bedside and she agrees with plan. Qualifiers: Fever type: unspecified Qualified Code(s): R50.9 - Fever, unspecified
[2024-10-09 23:30] VITALS: TEMP 97.7; O2SAT 94
--- NOTE | 2024-10-10 08:21 | Discharge Summary ---
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 At baseline patient is able to walk within 100-200 meters without getting dyspnea or chest pain or leg pain. Since fall patient sustained right hip pain, worse with moving and weight bearing somewhat better with pain medication in ER, during work up in ER, patient is found to have close right hip fracture and ER Dr Gross d/w ortho for operative repair consult, hospitalist team is asked to admit patient CONSULTS | PROCEDURES Consultations: orthopedic surgery Procedures: 10/07/24, operative repair right hip intertrochanteric - femoral shaft fracture by Dr. Víctor Shaw. HOSPITAL COURSE Hospital Course: 1. R IT femur fracture, mechanical fall: s/p operative repair with Right hip nailing 10/07/[address] Shaw. Minimal blood loss. The patient has had an uneventful postop course with minimal pain. He has been working with PT. He was treated with scheduled celecoxib, tylenol, and prn tramadol for pain. For dvt ppx, he will receive asa 81 mg BID x 4 wks (through Nov 05, 2024) as well as compression stockings per othro recs. He was started on ca and vit D supp. 2. BRENDA pneumonia: The pt presented with fever but no leukocytosis. CTA chest obtained and was negative for fat embolic syndrome and PE. It did reveal a consolidation in the BRENDA consistent with pneumonia. Also mildly enlarged mediastinal lymph nodes, likely reactive. Most likely source for fevers are lung infection. He is at risk for uncommon pathogens given roasterman immunosuppression with infliximab, including fugal and viral organisms. Doubt pulmonary TB given no cough or hemoptysis, wt loss, night sweats. Blood cx remained negative. work up for legionella, aspergillus, and histo was initiated, but pt responded clinically to broad spectrum antibiotics (cefepime and azithromycin). He was weaned to room air and remained on this for > 48 hours prior to discharge. Precribed levofloxacin to complete a total 7 day course on discharge. He has a primary electrical mechanical technician in [place] (Dr. Cooper), who I have attempted to contact without getting through. 3. hyponatremia: Na 130 on admission. Likely due to HCTZ, SIADH from pain. Diuretic was held and Na gradually trended up. It normalized by date of discharge. Resumed home HCTZ. Would obtain labs in 1-2 weeks to monitor. 4. macrocytic anemia: Hgb 12.2 on admission, trended down to 9.3 and then 7.5 post op. Likely some blood loss related to femur fracture. Minimal blood loss reported in OR. Also dilutional component. Consider marrow suppression from sepsis. Infliximab is associated with anemia in < 11% of pts and rarely pancytopenia and lymphoma. B12 wnl, TSH wnl. H/H remained stable thereafter. Would repeat labs outpt in 1-2 wks to monitor. 5. suspect BPH: Pt reported chronic symptoms consistent with this diagnosis. Difficult crowe placement in OR. He stated he has tried tamsulosin in the past without benefit. Will trial this medicine again. Pt declined crowe removal on discharge. Plan for removal and voiding trial in the next 1-2 days at . 6. psoriatic arthrtis, ankylosing spondylitis: Resume home infliximab injections and follow up with outpt production engineer as scheduled. 7. constipation: post op. Passed stool yesterday. Treated with miralax. Titrate bowel regimen as indicated at . ALLERGIES Allergies Allergy/AdvReac Type Severity Reaction Status Date / Time No Known Drug Allergies Allergy Verified 10/06/24 03:46 MEDICATIONS Ambulatory Orders Medication Instructions Recorded Confirmed acetaminophen 500 mg tablet 1,000 mg (2 x 500 mg) PO Q 8HR #60 10/10/24 (Tylenol Extra Strength) tabs aspirin 81 mg tablet,delayed 81 mg PO BID #60 tabs 06/29 release atorvastatin 80 mg tablet 80 mg PO QPM #30 tabs 10/06/24 calcium carbonate 500 mg (2.5 x 200 mg calcium (500 10/10/24 mg)) PO BID #60 tabs celecoxib 100 mg capsule 200 mg (2 x 100 mg) PO BID # 14 caps 10/10/24 cholecalciferol (vitamin D3) 25 25 mcg PO DAILY #30 ta bs 10/10/24 mcg (1,000 unit) tablet hydrochlorothiazide 25 mg tablet 25 mg PO DAILY #30 ta bs 10/10/24 10/06/24 irbesartan 150 mg tablet 150 mg PO DAILY #30 tabs 06/2910/06/24 levofloxacin 750 mg tablet 750 mg PO DAILY 4 days #4 t abs 10/10/24 metformin 1,000 mg tablet 1,000 mg PO BID #30 tabs 06/2910/06/24 polyethylene glycol 3350 17 gram 17 g PO DAILY #30 ea 10/10/24 oral powder packet tamsulosin 0.4 mg capsule 0.4 mg PO DAILY #30 caps 06/29 tramadol 50 mg tablet 50 mg PO Q6H PRN Severe Pain 10/10/24 (Level 7-10) #30 tabs PHYSICAL EXAM AT DISCHARGE Physical Exam Other/Comments: elderly man lying in bed, NAD, sclera anicteric, MMM Lungs: Left basilar crackles, nonlabored RRR, S1S2, no edema abd soft, NT, ND, BS+ AAO x3, strength 5/5 UE and LE bilat, normal tone, no tremor crowe draining clear yellow urine sausage digits hands, no erythema or warmth- no active synovitis LABS 10/09/24 05:56 10/09/24 05:56 DIAGNOSTIC IMAGING Diagnostic Imaging Results Comments: CTA chest, 10/06/24: IMPRESSION: 1.No central pulmonary embolus. Evaluation of the lower lobe pulmonary arteries is significantly limited due to respiratory motion artifact. 2.Consolidation in the left upper lobe consistent with pneumonia. Trace bilateral pleural effusions with adjacent atelectasis versus consolidation, or pronounced on the left. 3.Mildly enlarged mediastinal lymph nodes which are likely reactive given infection. 4.Cardiomegaly and severe coronary artery calcifications. Hip and pelvis x ray, 10/06/24: IMPRESSION: Comminuted displaced proximal femoral fracture involving the intertrochanteric region. TIME SPENT Time Spent in Discharge (Minutes): 25 Discharge Plan Discharge Patient Disposition: DC/Xfer Condition: Good Medically Cleared Date:: 10/10/24 Prescriptions: New tramadol 50 mg Tablet 50 mg PO Q6H PRN (Reason: Severe Pain (Level 7-10)) Qty: 30 0RF acetaminophen [Tylenol Extra Strength] 500 mg Tablet 1,000 mg PO Q8HR Qty: 60 0RF aspirin 81 mg Tablet,Delayed Release (Dr/Ec) 81 mg PO BID Qty: 60 0RF celecoxib 100 mg Capsule 200 mg PO BID Qty: 14 0RF calcium carbonate 200 mg calcium (500 mg) Tablet,Chewable 500 mg PO BID Qty: 60 0RF cholecalciferol (vitamin D3) 25 mcg (1,000 unit) Tablet 25 mcg PO DAILY Qty: 30 0RF polyethylene glycol 3350 17 gram Powder In Packet 17 g PO DAILY Qty: 30 0RF tamsulosin 0.4 mg Capsule 0.4 mg PO DAILY Qty: 30 0RF levofloxacin 750 mg tablet 750 mg PO DAILY 4 Days Qty: 4 0RF Continued atorvastatin 80 mg tablet 80 mg PO QPM Qty: 30 0RF hydrochlorothiazide 25 mg tablet 25 mg PO DAILY Qty: 30 0RF irbesartan 150 mg tablet 150 mg PO DAILY Qty: 30 0RF metformin 1,000 mg tablet 1,000 mg PO BID Qty: 30 0RF Activity Restrictions: Wt Bearing as Tolerated Activity Restrictions/Additional Instructions: 1. weight bearing as tolerated on Right lower extremity with a walker for at least 8-12 weeks. 2. staple removal in 10-14 days- may be done by staff, or send patient to [facility]opedic clinic if needed. 3. Follow up with Dr. Cuevas at [facility]opedic clinic in 1 month. 4. Crowe removal and trial of void at , or consider urology follow up for crowe removal. Diet: Regular Print Language: Latvian Patient Instructions: Surg Dc Stand Alone Forms: PCP List Report called to and time (if no answer, doc. time of each call attempted): NA Vitals documented within 30 minutes of discharge?: Yes"
[2024-10-10 12:29] VITALS: BP 115/53
== END 2024-10-10 12:12 | DRG 480 ==
LOC: ED 03:31 → ICU 05:48 → MS2 10-08 22:07
PROVIDERS: ADMIT Family Medicine; ATTEND Family Medicine
PROC: HIPNAIL (2024-10-07 08:30)